=== PATIENT | male | born 1930 | race Caucasian/White ===

== ENCOUNTER 2016-10-09 21:07 | Inpatient (IN) | payer MEDICARE, MEDICAID ==
[~2016-10-09] VITALS: Ht 167.6 cm; Wt 78.0 kg
[~2016-10-09 21:07] MED LIST: AVODART0.5 MG PO; CRESTOR10 M1; EFFIENT5 MG PO; NORCO 10-325 T1 EACH PO; NORCO 5-325 TA1 EACH PO; TAMSULOSIN HCL0.4 MG PO; UNOBMED
[2016-10-09 21:48] LABS: BASOPHILS % (AUTO) 0.7 % (0.0-2.0); EOSINOPHILS % (AUTO) 0.7 % (0.0-3.0); LYMPHOCYTES % (AUTO) 11.2 % (20.0-45.0); MEAN CORPUSCULAR HEMOGLOBIN 33.1 PG (27.0-31.0); MEAN CORPUSCULAR HGB CONC 35.1 G/DL (32.0-36.0); MEAN CORPUSCULAR VOLUME 94 FL (80-99); MEAN PLATELET VOLUME 5.5 FL (6.5-10.1); MONOCYTES % (AUTO) 5.6 % (1.0-10.0); NEUTROPHILS % (AUTO) 81.8 % (45.0-75.0); PLATELET COUNT 465 K/UL (150-450); RED BLOOD COUNT 2.88 M/UL (4.70-6.10); RED CELL DISTRIBUTION WIDTH 13.7 % (11.6-14.8); WHITE BLOOD COUNT 13.2 K/UL (4.8-10.8)
[2016-10-09 22:07] LABS: TROPONIN I < 0.30 ng/mL (<=0.30)
[2016-10-09 22:11] LABS: ALANINE AMINOTRANSFERASE 180 U/L (3-41); ANION GAP 15 (5-15); ASPARTATE AMINO TRANSFERASE 68 U/L (5-40); CALCIUM 8.8 mg/dL (8.6-10.2); CARBON DIOXIDE 23 mEQ/L (20-30); CHLORIDE 96 mEQ/L (98-107); HEMOLYSIS 14; POTASSIUM 4.8 mEQ/L (3.4-4.9); SODIUM 134 mEQ/L (135-145); TOTAL PROTEIN 5.8 g/dL (6.6-8.7)
[2016-10-09 22:48] VITALS: BP 101/55
[2016-10-09 23:21] LABS: APPEARANCE,URINE CLEAR; KETONES,URINE NEGATIVE (NEGATIVE); LEUKOCYTE ESTERASE ,URINE NEGATIVE (NEGATIVE); NITRITE,URINE NEGATIVE (NEGATIVE); PH,URINE 5 (4.5-8.0); PROTEIN,URINE NEGATIVE (NEGATIVE); UROBILINOGEN,URINE 1 MG/DL (0.0-1.0)
[2016-10-09 23:29] LABS: RBC,URINE 0-2 /HPF (0 - 0); WBC,URINE 0-2 /HPF (0 - 0)
[2016-10-09 23:30] LABS: BACTERIA,URINE OCCASIONAL /HPF
[2016-10-10] VITALS (8 sets, daily range): BP systolic 97–125; BP diastolic 50–69
[2016-10-10] MEDS ORDERED: ASPIR 8181 MG ORAL (01:16)
[2016-10-10] MEDS ORDERED: ACETAMINOPHEN325 M1 ORAL (01:17)
--- NOTE | 2016-10-10 01:21 | Emergency Room Report ---
History of Present Illness General Chief Complaint: Chest Pain Source: Patient, Family Member, EMS Present Illness HPI Is an 86-year-old male with a history of CAD with previous stenting done at [facility]. He presents with chief complaint of chest pain. Onset about 2 hours prior to arrival. [place] short of breath. Pain is mid chest. No radiation. No nausea vomiting. Decreased appetite for one day. He is in a rehabilitation facility he states he had recent hip replacement surgery. Allergies: Coded Allergies: No Known Allergies (Unverified , 07/29/12) Patient History Past Medical History: see triage record, old chart reviewed, CAD Past Surgical History: other Pertinent Family History: none Social History: Denies: smoking Immunizations: other Reviewed Nursing Documentation: PMH: Agreed, PSxH: Agreed Review of Systems Eye: Denies: blurred vision, eye pain ENT: Denies: ear pain, nose congestion, throat swelling Respiratory: Denies: cough, shortness of breath Cardiovascular: Reports: chest pain, Denies: palpitations Gastrointestinal: Denies: abdominal pain, diarrhea, nausea, vomiting Musculoskeletal: Denies: back pain, joint pain Skin: Denies: rash Neurological: Denies: headache, numbness Endocrine: Denies: increased thirst, increased urine Hematologic/Lymphatic: Denies: easy bruising All Other Systems: negative except mentioned in HPI Physical Exam Vital Signs Date Time Temp Pulse Resp B/P Pulse Ox O2 Delivery O2 Flow Rate FiO2 10/09/16 21:08 97 15 109/60 99 Room Air 10/09/16 22:48 97.4 vitals unremarkable Sp02 EP Interpretation: reviewed, normal General Appearance: well appearing, no apparent distress, alert Head: normocephalic, atraumatic Eyes: bilateral eye EOMI, bilateral eye PERRL ENT: hearing grossly normal, normal pharynx Neck: full range of motion, supple, no meningismus Respiratory: chest non-tender, lungs clear, normal breath sounds Cardiovascular #1: regular rate, rhythm, no murmur Gastrointestinal: normal bowel sounds, non tender, no mass, no organomegaly, no bruit, non-distended Musculoskeletal: back normal Psychiatric: mood/affect normal Skin: warm/dry Medical Decision Making Diagnostic Impression: Primary Impression: ACS (acute coronary syndrome) Additional Impression: Anemia Qualified Codes: D64.9 - Anemia, unspecified ER Course Patient presents with chest pain. He does have known coronary artery disease with previous stenting. Chest pain atypical in for said her troponin negative. Load the admission for further workup. No evidence of pneumonia, PE, dissection on CT scan. Laboratory Tests Test 10/09/16 21:15 10/09/16 22:45 White Blood Count 13.2 K/UL (4.8-10.8) H Red Blood Count 2.88 M/UL (4.70-6.10) L Hemoglobin 9.5 G/DL (14.2-18.0) L Hematocrit 27.1 % (42.0-52.0) L Mean Corpuscular Volume 94 FL (80-99) Mean Corpuscular Hemoglobin 33.1 PG (27.0-31.0) H Mean Corpuscular Hemoglobin Concent 35.1 G/DL (32.0-36.0) Red Cell Distribution Width 13.7 % (11.6-14.8) Platelet Count 465 K/UL (150-450) H Mean Platelet Volume 5.5 FL (6.5-10.1) L Neutrophils (%) (Auto) 81.8 % (45.0-75.0) H Lymphocytes (%) (Auto) 11.2 % (20.0-45.0) L Monocytes (%) (Auto) 5.6 % (1.0-10.0) Eosinophils (%) (Auto) 0.7 % (0.0-3.0) Basophils (%) (Auto) 0.7 % (0.0-2.0) D-Dimer 8769 ng/mL (<500) H Sodium Level 134 mEQ/L (135-145) L Potassium Level 4.8 mEQ/L (3.4-4.9) Chloride Level 96 mEQ/L (98-107) L Carbon Dioxide Level 23 mEQ/L (20-30) Anion Gap 15 (5-15) Blood Urea Nitrogen 31 mg/dL (7-23) H Creatinine 1.0 mg/dL (0.7-1.2) Estimat Glomerular Filtration Rate mL/min (>60) Glucose Level 172 mg/dL (74-106) H Calcium Level 8.8 mg/dL (8.6-10.2) Total Bilirubin 0.5 mg/dL (0.0-1.2) Aspartate Amino Transf (AST/SGOT) 68 U/L (5-40) H Alanine Aminotransferase (ALT/SGPT) 180 U/L (3-41) H Alkaline Phosphatase 97 U/L (40-129) Total Creatine Kinase 50 U/L (38-174) Creatine Kinase MB 4.0 ng/mL (< 6.7) Creatine Kinase MB Relative Index 8.0 Troponin I < 0.30 ng/mL (<=0.30) Pro-B-Type Natriuretic Peptide 384 pg/mL (0-450) Total Protein 5.8 g/dL (6.6-8.7) L Albumin 2.9 g/dL (3.5-5.2) L Globulin 2.9 g/dL Albumin/Globulin Ratio 1.0 (1.0-2.7) Urine Color Yellow Urine Appearance Clear Urine pH 5 (4.5-8.0) Urine Specific [place] 1.015 (1.005-1.035) Urine Protein Negative (NEGATIVE) Urine Glucose (UA) Negative (NEGATIVE) Urine Ketones Negative (NEGATIVE) Urine Occult Blood 1+ (NEGATIVE) H Urine Nitrite Negative (NEGATIVE) Urine Bilirubin Negative (NEGATIVE) Urine Urobilinogen 1 MG/DL (0.0-1.0) H Urine Leukocyte Esterase Negative (NEGATIVE) Urine RBC 0-2 /HPF (0 - 0) H Urine WBC 0-2 /HPF (0 - 0) Urine Squamous Epithelial Cells None /LPF (NONE/OCC) Urine Bacteria Occasional /HPF (NONE) Lab Results Impression labs with anemia EKG Diagnostic Results Rate: normal Rhythm: NSR ST Segments: no acute changes Rhythm Strip Diag. Results EP Interpretation: yes Rate: 80 Rhythm: NSR, no PVC's, no ectopy Chest X-Ray Diagnostic Results EP Interpretation: Yes Findings: no consolidation, no effusion, no pneumothorax, no acute cardiopulmonary disease Number of Views: 1 CT/MRI/US Diagnostic Results CT/MRI/US Diagnostic Results : Imaging Test Ordered: CT chest Impression Read by radiologist. No acute PE. Emphysema. Last Vital Signs Date Time Temp Pulse Resp B/P Pulse Ox O2 Delivery O2 Flow Rate FiO2 10/10/16 00:55 70 12 109/56 98 Room Air 10/09/16 22:48 97.4 Status: improved Disposition: ADMITTED INPATIENT Condition: Serious Referrals: Stanley Baca MD (PCP) ZHANG PINEDA M.D. Oct 10, 2016 01:21
[2016-10-10] MEDS ORDERED: DuoNeb 0.5-3(2.5)mg/3ml neb HHN PRN (06:45)
[2016-10-10] MEDS ORDERED: Morphine Sulfate 2mg/ml Inj IVP PRN (06:45)
[2016-10-10] MEDS ORDERED: Diltiazem 25mg/5ml IV PRN (06:45)
[2016-10-10] MEDS ORDERED: Ketorolac 30mg Inj IV PRN (06:45)
[2016-10-10] MEDS ORDERED: Enalaprilat 2.5mg/2ml Inj IV PRN (06:45)
[2016-10-10] MEDS ORDERED: Miralax 17gm pkt ORAL PRN (06:45)
[2016-10-10] MEDS ORDERED: Nitroglycerin Subl 0.4mg tab (Bottle Of 25) SL PRN (06:45)
[2016-10-10] MEDS ORDERED: Norco 5mg/325mg tab ORAL PRN (07:00)
[2016-10-10 08:34] LABS: TROPONIN I < 0.30 ng/mL (<=0.30)
[2016-10-10] MEDS: Tamsulosin 0.4mg cap ORAL SCH (08:44)
[2016-10-10] MEDS: Aspirin Baby 81mg ORAL SCH (08:44)
[2016-10-10] MEDS: Heparin 5000 units/ml inj SUBQ SCH ×2 (08:48→13:37)
[2016-10-10] MEDS ORDERED: Heparin 5000 units/ml inj SUBQ SCH (09:00)
--- NOTE | 2016-10-10 10:02 | Diagnostic Imaging Report ---
ndication: Chest pain Technique: IV administration nonionic contrast. Spiral acquisitions obtained from the lung bases to the lung apices. Multiplanar and 3-D reconstructions were generated. Total dose length product 674 mGycm. CTDIvol(s) 12, 75, 18 mGy. Dose reduction achieved using automated exposure control Comparison: None Reference is made to abdomen pelvis CT dated 05/12/2010 Findings: There is poor quality opacification of the pulmonary arteries, precluding exclusion of all of the large central pulmonary emboli. The thoracic aorta is well opacified, and there is no evidence of aneurysm or dissection. There is common origin of the right brachiocephalic and left common carotid arteries. No pulmonary arterial dilatation. There is mild dilatation of the right atrium and right ventricle. There is a small 5 mm nodule seen in the inferior right upper lobe anterolaterally, seen on image 47 of series 7. A 4 mm nodule is seen just inferior to this on image 50 of series 7. A 3 mm right lower lobe nodule is demonstrated on image 58 of series. A 3 mm nodule is seen in the left lower lobe, image 49 series. A 6 mm nodule is seen in the anterior left lower lobe, image 63 of series 7. This demonstrates a small peripheral calcification. Multiple subpleural nodules are seen the lung bases, as well as a few in the right upper lobe. These are all visible on the previous exam There is a small left pleural effusion, resulting in some compressive left lower lobe atelectasis.. There is bilateral basilar dependent atelectasis. No infiltrates or congestion. A single cystic space is seen in the right lower lobe There is a large paraesophageal hiatal hernia. No pericardial effusion. No mediastinal or adenopathy. The thyroid is massively enlarged and demonstrates multiple nodules. No axillary or chest wall mass or adenopathy. The included upper abdominal anatomy demonstrates calcifications within segment 7 of the liver. Impression: Poor opacification of the pulmonary arteries, essentially nondiagnostic for exclusion of pulmonary embolus Isolated right atrial and right ventricular dilatation, significance uncertain. Pulmonary arterial hypertension not excludable Multiple pulmonary nodules bilaterally. Most of these are evident on the previous CT abdomen 05/12/2010, appear unchanged, and are presumed postinflammatory. A few of the subpleural nodules in the upper lobes are excluded from the prior imaging volume but are probably post inflammatory as well Single right lower lobe cystic space noted. Massively enlarged multinodular thyroid Large paraesophageal hiatal hernia Right hepatic lobe calcifications, presumed dystrophic, unchanged since 2009 This agrees with the preliminary interpretation provided overnight by [facility] teleradiology service. The CT scanner at [facility] is accredited by the [employer] and the scans are performed using protocols designed to limit radiation exposure to as low as reasonably achievable to attain images of sufficient resolution adequate for diagnostic evaluation.
--- NOTE | 2016-10-10 12:00 | Diagnostic Imaging Report ---
Indication: Chest pain Technique: One view of the chest Comparison: none Findings: Widened upper mediastinum is consistent with substernal goiter demonstrated on recent CT. There is some atelectasis at the left lung base. The lungs and pleural spaces are otherwise clear. Lower mediastinal mass is consistent with the hiatal hernia demonstrated on recent CT. Impression: Minimal left basilar atelectasis. No acute process otherwise Widened upper mediastinum, consistent with known substernal goiter Hiatal hernia
--- NOTE | 2016-10-10 12:04 | Consultation ---
History of Present Illness General Date patient seen: Oct 10, 2016 Chief Complaint: Chest Pain Referring physician: Dr. Fuentes Reason for Consultation: inpatient managemetn Present Illness HPI 86-year-old male with a history of CAD, stenting, currently residing in a rehab presented with chief complaint of chest pain with onset about 2 hours prior to arrival. No radiation. No nausea vomiting. He is admitted to telemetry to rule out acute CO. Allergies: Coded Allergies: No Known Allergies (Unverified , 07/29/12) Medication History Scheduled Aspirin* (Aspir 81*), 81 MG ORAL DAILY, (Reported) Scheduled PRN Acetaminophen* (Acetaminophen 325MG Tablet*), 325 MG ORAL Q4H PRN for For Pain, (Reported) Miscellaneous Medications Dutasteride (Avodart), PO, (Reported) Prasugrel Hcl (Effient), PO, (Reported) Rosuvastatin Calcium (Crestor), (Reported) Tamsulosin Hcl (Tamsulosin Hcl*), PO, (Reported) Unable to Obtain Medications (Unable To Obtain Meds), (Reported) Discontinued Medications Hydrocodone Bit/Acetaminophen 10-325* ([place] 10-325*), 1 TAB PO Q6H Discontinued Reason: Therapy completed Hydrocodone Bit/Acetaminophen 5-325* ([place] 5-325*), 1 TAB PO Q6H Discontinued Reason: Therapy completed Patient History Healthcare decision maker pt alert and oriented x2 Resuscitation status Full Code Advanced Directive on File No Past Medical/Surgical History Past Medical/Surgical History: (1) HTN (hypertension) (2) Prostate cancer (3) Status post hip surgery Review of Systems All Other Systems: negative except mentioned in HPI Physical Exam General Appearance: cachetic Lines, tubes and drains: peripheral HEENT: normocephalic, atraumatic Neck: non-tender, normal alignment Respiratory/Chest: chest wall non-tender, lungs clear Cardiovascular/Chest: normal peripheral pulses, normal rate Abdomen: normal bowel sounds, non tender Genitourinary/Rectal: normal genital exam, normal rectal exam Extremities: normal range of motion Last 24 Hour Vital Signs Date Time Temp Pulse Resp B/P Pulse Ox O2 Delivery O2 Flow Rate FiO2 10/10/16 10:02 109/67 10/10/16 08:43 97.7 80 20 101/53 99 Nasal Cannula 3.0 10/10/16 07:46 81 10/10/16 04:30 97.0 69 20 124/65 100 Room Air 10/10/16 04:00 71 10/10/16 02:10 97.7 72 16 125/69 98 Nasal Cannula 2.0 10/10/16 01:55 97.4 70 12 109/56 98 Room Air 10/10/16 00:55 70 12 109/56 98 Room Air 10/09/16 22:48 97.4 80 16 101/55 97 Room Air 10/09/16 21:10 97 15 Room Air 10/09/16 21:08 97 15 109/60 99 Room Air Intake and Output 10/09/16 10/10/16 19:00 07:00 # Voids 2 Laboratory Tests Test 10/09/16 21:15 10/09/16 22:45 10/10/16 07:45 White Blood Count 13.2 K/UL (4.8-10.8) H Red Blood Count 2.88 M/UL (4.70-6.10) L Hemoglobin 9.5 G/DL (14.2-18.0) L Hematocrit 27.1 % (42.0-52.0) L Mean Corpuscular Volume 94 FL (80-99) Mean Corpuscular Hemoglobin 33.1 PG (27.0-31.0) H Mean Corpuscular Hemoglobin Concent 35.1 G/DL (32.0-36.0) Red Cell Distribution Width 13.7 % (11.6-14.8) Platelet Count 465 K/UL (150-450) H Mean Platelet Volume 5.5 FL (6.5-10.1) L Neutrophils (%) (Auto) 81.8 % (45.0-75.0) H Lymphocytes (%) (Auto) 11.2 % (20.0-45.0) L Monocytes (%) (Auto) 5.6 % (1.0-10.0) Eosinophils (%) (Auto) 0.7 % (0.0-3.0) Basophils (%) (Auto) 0.7 % (0.0-2.0) D-Dimer 8769 ng/mL (<500) H Sodium Level 134 mEQ/L (135-145) L Potassium Level 4.8 mEQ/L (3.4-4.9) Chloride Level 96 mEQ/L (98-107) L Carbon Dioxide Level 23 mEQ/L (20-30) Anion Gap 15 (5-15) Blood Urea Nitrogen 31 mg/dL (7-23) H Creatinine 1.0 mg/dL (0.7-1.2) Estimat Glomerular Filtration Rate mL/min (>60) Glucose Level 172 mg/dL (74-106) H Calcium Level 8.8 mg/dL (8.6-10.2) Total Bilirubin 0.5 mg/dL (0.0-1.2) Aspartate Amino Transf (AST/SGOT) 68 U/L (5-40) H Alanine Aminotransferase (ALT/SGPT) 180 U/L (3-41) H Alkaline Phosphatase 97 U/L (40-129) Total Creatine Kinase 50 U/L (38-174) Creatine Kinase MB 4.0 ng/mL (< 6.7) Creatine Kinase MB Relative Index 8.0 Troponin I < 0.30 ng/mL (<=0.30) < 0.30 ng/mL (<=0.30) Pro-B-Type Natriuretic Peptide 384 pg/mL (0-450) Total Protein 5.8 g/dL (6.6-8.7) L Albumin 2.9 g/dL (3.5-5.2) L Globulin 2.9 g/dL Albumin/Globulin Ratio 1.0 (1.0-2.7) Urine Color Yellow Urine Appearance Clear Urine pH 5 (4.5-8.0) Urine Specific [place] 1.015 (1.005-1.035) Urine Protein Negative (NEGATIVE) Urine Glucose (UA) Negative (NEGATIVE) Urine Ketones Negative (NEGATIVE) Urine Occult Blood 1+ (NEGATIVE) H Urine Nitrite Negative (NEGATIVE) Urine Bilirubin Negative (NEGATIVE) Urine Urobilinogen 1 MG/DL (0.0-1.0) H Urine Leukocyte Esterase Negative (NEGATIVE) Urine RBC 0-2 /HPF (0 - 0) H Urine WBC 0-2 /HPF (0 - 0) Urine Squamous Epithelial Cells None /LPF (NONE/OCC) Urine Bacteria Occasional /HPF (NONE) Height (Feet): 5 Height (Inches): 6.00 Weight (Pounds): 172 Medications Current Medications Medications (Trade) Dose Ordered Sig/Ralph Route PRN Reason Start Time Stop Time Status Last Admin Dose Admin Acetaminophen (Tylenol) 650 mg Q4H PRN ORAL FEVER 10/10/16 06:45 11/09/16 06:44 Acetaminophen/ Hydrocodone Bitart ([place] 5/325) 1 tab Q4H PRN ORAL Moderate Pain (Pain Scale 4-6) 10/10/16 07:00 10/17/16 06:59 Albuterol/ Ipratropium (DuoNeb 0.5-3(2.5)mg/3ml) 3 ml Q4H PRN HHN Shortness of Breath 10/10/16 06:45 10/15/16 06:44 Aspirin (ASA) 162 mg DAILY ORAL 10/10/16 09:00 11/09/16 08:59 10/10/16 08:44 Atorvastatin Calcium (Lipitor) 40 mg BEDTIME ORAL 10/10/16 21:00 11/09/16 20:59 Clopidogrel Bisulfate (Plavix) 75 mg DAILY ORAL 10/10/16 09:00 11/09/16 08:59 10/10/16 08:44 Diltiazem HCl (Cardizem) 10 mg Q1H PRN IV heart rate more than 120, 10/10/16 06:45 11/09/16 06:44 Enalaprilat (Vasotec) 2.5 mg Q6H PRN IV sbp more than 160 10/10/16 06:45 11/09/16 06:44 Finasteride (Proscar) 5 mg DAILY ORAL 10/10/16 09:00 11/09/16 08:59 10/10/16 08:44 Heparin Sodium (Porcine) (Heparin 5000 units/ml) 5,000 units EVERY 8 HOURS SUBQ 10/10/16 09:00 11/09/16 08:59 10/10/16 08:48 Ketorolac Tromethamine (Toradol 30mg) 30 mg Q6HR PRN IV moderate pain ( 4-6) 10/10/16 06:45 10/15/16 06:44 Morphine Sulfate (Morphine Sulfate) 2 mg Q4H PRN IVP severe Pain (Pain Scale 7-10) 10/10/16 06:45 10/17/16 06:44 Nitroglycerin (Ntg) 0.4 mg Q5M PRN SL Prn Chest Pain 10/10/16 06:45 11/09/16 06:44 Ondansetron HCl (Zofran) 4 mg Q6H PRN IVP Nausea & Vomiting 10/10/16 06:45 11/09/16 06:44 Pantoprazole (Protonix) 40 mg ACBREAKFAST ORAL 10/10/16 06:30 11/09/16 06:29 10/10/16 07:21 Polyethylene Glycol (Miralax) 17 gm DAILYPRN PRN ORAL Constipation 10/10/16 06:45 11/09/16 06:44 Tamsulosin HCl (Flomax) 0.4 mg DAILY ORAL 10/10/16 09:00 11/09/16 08:59 10/10/16 08:44 Temazepam (Restoril) 15 mg HSPRN PRN ORAL Insomnia 10/10/16 06:45 10/17/16 06:44 Assessment/Plan Problem List: (1) ACS (acute coronary syndrome) ICD Codes: I24.9 - Acute ischemic heart disease, unspecified SNOMED: 727727562 (2) HTN (hypertension) ICD Codes: I10 - Essential (primary) hypertension SNOMED: 35844681 (3) Anemia ICD Codes: D64.9 - Anemia, unspecified SNOMED: 515311617 Qualifiers: Qualified Codes: D64.9 - Anemia, unspecified (4) Prostate cancer ICD Codes: C61 - Malignant neoplasm of prostate SNOMED: 260552118 Assessment/Plan serial ekg, troponin echo anemia w/u stress study dvt prophylaxis check psa VINOD ANDERSON Oct 10, 2016 12:04
--- NOTE | 2016-10-10 14:14 | History & Physical ---
History and Physical History & Physicial Dictated for Int Med-Dr Baca no. [id number]. CLARENCE MOREAU Oct 10, 2016 14:14
[2016-10-10] MEDS ORDERED: XARELTO10 MG ORAL (16:21)
--- NOTE | 2016-10-10 16:45 | Diagnostic Imaging Report ---
Indication: Chest pain Technique: No stress imaging, per patient request. Resting images obtained using IV administration 10.3 mCi 99m technetium Myoview. SPECT images obtained Comparison: None Findings: No cardiology report is available. Normal rest perfusion is demonstrated. Normal cardiac chamber size Impression: Normal resting perfusion, indicating absence of any significant infarcts. Unable to assess for ischemia in the absence of stress images
--- NOTE | 2016-10-10 18:18 | Cardiology Progress Note ---
Assessment/Plan Assessment/Plan [id number] full not dictated ivf bolus repeat ekg and trop hold dc pt agreeable Objective Last 24 Hour Vital Signs Date Time Temp Pulse Resp B/P Pulse Ox O2 Delivery O2 Flow Rate FiO2 10/10/16 16:09 97.5 89 18 97/50 97 Room Air 10/10/16 15:46 92 10/10/16 12:02 97.0 73 20 108/58 98 Room Air 10/10/16 11:30 84 10/10/16 10:02 109/67 10/10/16 08:43 97.7 80 20 101/53 99 Nasal Cannula 3.0 10/10/16 07:46 81 10/10/16 06:40 69 20 Room Air 21 10/10/16 04:30 97.0 69 20 124/65 100 Room Air 10/10/16 04:00 71 10/10/16 02:10 97.7 72 16 125/69 98 Nasal Cannula 2.0 10/10/16 01:55 97.4 70 12 109/56 98 Room Air 10/10/16 00:55 70 12 109/56 98 Room Air 10/09/16 22:48 97.4 80 16 101/55 97 Room Air 10/09/16 21:10 97 15 Room Air 10/09/16 21:08 97 15 109/60 99 Room Air Intake and Output 10/09/16 10/10/16 19:00 07:00 # Voids 2 Laboratory Tests Test 10/09/16 21:15 10/09/16 22:45 10/10/16 07:45 White Blood Count 13.2 K/UL (4.8-10.8) H Red Blood Count 2.88 M/UL (4.70-6.10) L Hemoglobin 9.5 G/DL (14.2-18.0) L Hematocrit 27.1 % (42.0-52.0) L Mean Corpuscular Volume 94 FL (80-99) Mean Corpuscular Hemoglobin 33.1 PG (27.0-31.0) H Mean Corpuscular Hemoglobin Concent 35.1 G/DL (32.0-36.0) Red Cell Distribution Width 13.7 % (11.6-14.8) Platelet Count 465 K/UL (150-450) H Mean Platelet Volume 5.5 FL (6.5-10.1) L Neutrophils (%) (Auto) 81.8 % (45.0-75.0) H Lymphocytes (%) (Auto) 11.2 % (20.0-45.0) L Monocytes (%) (Auto) 5.6 % (1.0-10.0) Eosinophils (%) (Auto) 0.7 % (0.0-3.0) Basophils (%) (Auto) 0.7 % (0.0-2.0) D-Dimer 8769 ng/mL (<500) H Sodium Level 134 mEQ/L (135-145) L Potassium Level 4.8 mEQ/L (3.4-4.9) Chloride Level 96 mEQ/L (98-107) L Carbon Dioxide Level 23 mEQ/L (20-30) Anion Gap 15 (5-15) Blood Urea Nitrogen 31 mg/dL (7-23) H Creatinine 1.0 mg/dL (0.7-1.2) Estimat Glomerular Filtration Rate mL/min (>60) Glucose Level 172 mg/dL (74-106) H Calcium Level 8.8 mg/dL (8.6-10.2) Total Bilirubin 0.5 mg/dL (0.0-1.2) Aspartate Amino Transf (AST/SGOT) 68 U/L (5-40) H Alanine Aminotransferase (ALT/SGPT) 180 U/L (3-41) H Alkaline Phosphatase 97 U/L (40-129) Total Creatine Kinase 50 U/L (38-174) Creatine Kinase MB 4.0 ng/mL (< 6.7) Creatine Kinase MB Relative Index 8.0 Troponin I < 0.30 ng/mL (<=0.30) < 0.30 ng/mL (<=0.30) Pro-B-Type Natriuretic Peptide 384 pg/mL (0-450) Total Protein 5.8 g/dL (6.6-8.7) L Albumin 2.9 g/dL (3.5-5.2) L Globulin 2.9 g/dL Albumin/Globulin Ratio 1.0 (1.0-2.7) Urine Color Yellow Urine Appearance Clear Urine pH 5 (4.5-8.0) Urine Specific [place] 1.015 (1.005-1.035) Urine Protein Negative (NEGATIVE) Urine Glucose (UA) Negative (NEGATIVE) Urine Ketones Negative (NEGATIVE) Urine Occult Blood 1+ (NEGATIVE) H Urine Nitrite Negative (NEGATIVE) Urine Bilirubin Negative (NEGATIVE) Urine Urobilinogen 1 MG/DL (0.0-1.0) H Urine Leukocyte Esterase Negative (NEGATIVE) Urine RBC 0-2 /HPF (0 - 0) H Urine WBC 0-2 /HPF (0 - 0) Urine Squamous Epithelial Cells None /LPF (NONE/OCC) Urine Bacteria Occasional /HPF (NONE) Free Prostate Specific Antigen Pending Percent Free Prostate Specific Ag Pending Prostate Specific Antigen Total Pending INGRID FRANZ Oct 10, 2016 18:18
[2016-10-10] MEDS ORDERED: NS 250 ML IVPB ONE (18:30)
--- NOTE | 2016-10-10 20:48 | History and Physical Report ---
DATE OF ADMISSION: 10/10/[address] Baca. CHIEF COMPLAINT: The patient is an 86-year-old Farsi-speaking white male, presents with complaint of chest pain. HISTORY OF PRESENT ILLNESS: The patient underwent right hip hemiarthroplasty secondary to right femoral neck fracture at [facility] on 09/29/2016. The patient was admitted to [facility] from 09/29/2016 to 10/04/2016. The patient was discharged to rehabilitation center at [place]. The patient began to experience chest pain approximately 2 hours prior to arrival at [facility]. Chest pain is substernal. There is no radiation to the jaw or to the shoulder. The patient also felt short of breath. The patient presented to [facility]. The patient was admitted for chest pain to rule out acute coronary syndrome. REVIEW OF SYSTEMS: Constitutional: The patient denies weight loss or weight gain. The patient denies fevers or chills. HEENT: The patient denies ear or throat pain. Cardiovascular: The patient has palpitations. The patient complains of chest pain. Chest: The patient denies wheezing or shortness of breath. Abdomen: The patient denies nausea or vomiting. He complains of constipation. Genitourinary: The patient denies dysuria or increased frequency of urination. Neuromuscular: The patient denies seizures or generalized weakness. PAST MEDICAL HISTORY: Significant for, 1. Coronary disease, status post PTCA with stent placement. 2. Hypertension. 3. Right femoral neck fracture as above. 4. History of prostate cancer, status post radiation therapy. 5. Hypercholesterolemia. PAST SURGICAL HISTORY: Significant for, 1. Right femur hemiarthroplasty secondary to fracture as above. 2. Partial thyroidectomy. CURRENT MEDICATIONS: 1. Crestor 20 mg one tablet p.o. nightly. 2. Avodart 0.5 mg one tablet p.o. daily. 3. Benicar 20 mg one tablet p.o. daily. ALLERGIES: No known drug allergies. SOCIAL HISTORY: The patient is . The patient denies tobacco or alcohol use. PHYSICAL EXAMINATION: VITAL SIGNS: Temperature 97.7, respirations 20, pulse 80, and blood pressure 101/53. GENERAL: The patient is a well-developed, well-nourished, elderly white male, in no apparent distress. HEENT: Eyes, pupils are equal and responsive to light and accommodation. Extraocular movements are intact. NECK: Supple. No lymphadenopathy. CHEST: Lungs are clear to auscultation bilaterally without wheezes or rales. CARDIOVASCULAR: Regular rate. S1 and S2 normal without murmurs, rubs, or gallops. ABDOMEN: Soft, nontender, and nondistended. Positive bowel sounds. No evidence of hepatosplenomegaly. Currently, no rebound or guarding. EXTREMITIES: Negative for clubbing, cyanosis, or edema. RECTAL/GENITALIA: Refused. NEUROLOGIC: Cranial nerves II through XII grossly intact without focal deficits. Motor strength is 5/5 bilaterally. Deep tendon reflexes are 2+ plantar. LABORATORY STUDIES: WBC 13.2, hemoglobin 9.5, hematocrit 27.1, and platelets 465,000. Sodium 134, potassium 4.8, chloride 96, CO2 23, BUN 31, creatinine 1.0, and glucose 172. Troponin less than 0.3. ASSESSMENT: This is an 86-year-old white male with, 1. Chest pain. 2. History of coronary artery disease. 3. History of right femoral neck fracture. 4. Hypertension. 5. Prostate cancer. 6. Hypercholesterolemia. 7. Sacral decubitus ulcer, stage I. TREATMENT: 1. CHEST PAIN/CORONARY ARTERY DISEASE: Cardiology consultation is pending with Dr. Jimenes and adenosine Cardiolite stress test is pending. We will follow recommendation of Cardiology. The patient does have a history of coronary artery disease, status post stent placement. 2. Hypertension. Continue Benicar as above. 3. History of prostate cancer. Continue Avodart as above. 4. Hypercholesterolemia. Continue Crestor as above. 5. Sacral decubitus ulcer, stage I. Agustin Fuentes M.D. DR: GAB JOB#: [id number] CC:
[2016-10-11 00:28] VITALS: BP 109/62
[2016-10-11 04:03] VITALS: BP 111/60
--- NOTE | 2016-10-11 04:58 | Consultation ---
DATE OF CONSULTATION: 10/10/2016 CARDIOLOGY CONSULTATION CONSULTING PHYSICIAN: Soham Jimenes M.D. REFERRING PHYSICIAN: Meek Yanes M.D. REASON FOR REFERRAL: Hypotension. HISTORY OF PRESENT ILLNESS: This is an elderly gentleman, who apparently has been recently hospitalized at [facility] for a non-syncopal fall resulting in a hip fracture, for which he underwent a hip surgery. He was subsequently transferred to convalescent facility since he was not feeling really good and has not been eating well for the past couple of days. He had some physical therapy yesterday did not feel good and apparently he had problems with the way he was looking and that he has been transferred to the emergency room at [facility]. He has had some discomfort in his chest, across the chest, but nothing like what he has had on prior occasions when he had his coronary intervention by number of years ago. Clearly, there is a distinction between the sensation he had in his chest, which he states resolved after a short period of time versus with his pre-angioplasty symptom. He does not have any PND and feels better when he is lying down flat. He does not have any palpitations, has not felt any dizziness or lightheadedness on standing position at all. Today, he apparently was scheduled to undergo a perfusion imaging of some sort. He did not feel good and they aborted the test and he is now wanting to go back to the facility, but the nursing staff found him to be hypotensive and therefore eventually this consultation was requested. Again, the patient does not have any chest discomfort whatsoever at the present time. PAST MEDICAL HISTORY: Positive for history of prostate cancer for which he underwent radiation therapy two to three years ago. He has history of coronary disease, status post percutaneous coronary intervention. The vessel was really unknown to me ____ I have not been able to get any information from [facility] except what is listed in the chart. He has history of hyperlipidemia, history of prior partial thyroidectomy. No prior history of heart attack. No stroke. No hepatitis or tuberculosis. No asthma or emphysema. No ulcers. No kidney problems, liver problems, thyroid problems, anemia, or arthritis is known by the patient. Actually, he has had an LAD stent as it appears in the chart. The patient had a cardiac catheterization in 2004 that showed proximal stenosis of left anterior descending artery. He had moderate disease of left circumflex artery and right coronary artery at that time. ALLERGIES: He is reportedly not allergic to any medications. SOCIAL HISTORY: He never smoked and never drank alcoholic beverages. No drug use. He lives at home. REVIEW OF SYSTEMS: Gastrointestinal: He denies any nausea, vomiting, diarrhea, or constipation. No bloody stools or black tarry stools. No burning on urination. No bloody urine. Constitutional: No fevers or chills. No weight loss. PHYSICAL EXAMINATION: GENERAL: Shows to be elderly gentleman, in no apparent respiratory distress. VITAL SIGNS: Blood pressure has been as low as 84/46 and subsequently 97/50s, has been as high as 125/69 earlier today. NECK: Supple. No jugular venous distention. No abdominojugular reflux noted. LUNGS: Clear to auscultation and percussion. CARDIAC: S1 is normal. S2 is normal. Regular rate and rhythm. No heaves. No thrills. No gallops or rubs are noted. He does have actually holosystolic regurgitant murmur. ABDOMEN: Soft and nontender. Positive bowel sounds. EXTREMITIES: There is no clubbing, cyanosis, nor is there any edema. NEUROLOGIC: He is awake, alert, and responsive, in no apparent respiratory distress. LABORATORY AND DIAGNOSTIC DATA: His white count is 13.2, hemoglobin 9.5, and platelet count 465,000. His sodium is 134, potassium 4.8, chloride 98, bicarbonate 23, BUN 31, creatinine 1.1, and glucose 172. Two sets of cardiac enzymes are negative. ProBNP of 384. Alkaline phosphatase is 97. Total CK of 50. AST and ALT are 68 and 170. Albumin of 2.9. D-dimer is 8769. Urinalysis is fairly unremarkable. His chest x-ray, no atelectasis. No acute process. He has widened up mediastinum consistent with known substernal goiter and hiatal hernia. CTA is reported as showing poor opacification of pulmonary artery, essentially nondiagnostic for exclusion of pulmonary embolism. Actually, the right atrial and right ventricular enlargement and pulmonary arterial hypertension is not excludable. Multiple pulmonary nodules bilaterally, previous CAT scan in 2009 appear unchanged. Massively enlarged multinodular thyroid, large paraesophageal hiatal hernia, right hepatic lobe calcification, and the patient had an attempt at SPECT imaging indicated normal resting perfusion. Ischemia was not assessed as the patient was not able to complete the test. Echocardiogram, technically difficult study, ejection fraction of 55% and mild diastolic relaxation abnormality. Pulmonary systolic pressure in the 50s. His electrocardiogram is fairly unremarkable. ASSESSMENT AND PLAN: 1. Hypotension, possibly volume related, although the patient does not have any significant elevated blood pressure. 2. Paraesophageal hernia. 3. History of recent hip fracture, status post surgery. 4. Coronary artery disease with stenting to left anterior descending artery and moderate disease in the right coronary artery territory in 2004. 5. History of prostate cancer, status post radiation therapy. 6. Hyperlipidemia. 7. Partial thyroidectomy. 8. Postoperative anemia. Dr. Yanes, this patient was seen in cardiac consultation. I do not feel it is safe for the patient to be going back to convalescent facility. I have asked him to allow us to administer some fluids to improve his blood pressure before he has to leave the hospital and go back to the convalescent facility agree. An EKG will be performed. His labs will be repeated. His CBC will be specifically repeated. IV fluids will be administered overnight to see if there is any improvement. The patient's electrocardiogram so far has not been negative. His EKG appears to be intact. His resting perfusion imaging was intact. His echo does show some pulmonary hypertension. A CT pulmonary angiogram was not diagnostic. I would perform a venous duplex of the lower extremity; however, of note is that the patient is on Xarelto as outpatient. I would discontinue Plavix and aspirin and Xarelto combination and then just leave him on probably a combination of low-dose Xarelto for DVT prophylaxis as well as aspirin and low-dose Xarelto as they are doing for DVT prophylaxis. Repeat cardiac enzymes of course should be done. Further recommendations depending on the findings of repeat EKG and cardiac enzymes and whether the patient has repeat chest . Soham Jimenes M.D. DR: Elliott JOB#: [id number] CC:
[2016-10-11 08:00] VITALS: BP 116/57
[2016-10-11] MEDS ORDERED: Xarelto 10mg tab ORAL SCH (09:00)
[2016-10-11] MEDS: Aspirin Baby 81mg ORAL SCH (09:41)
[2016-10-11] MEDS: Tamsulosin 0.4mg cap ORAL SCH (09:41)
[2016-10-11] MEDS ORDERED: DOBUTamine 250mg/250ml Premix IV ONE (09:53)
[2016-10-11] MEDS ORDERED: NS 275ml ONE (09:56)
[2016-10-11 11:21] VITALS: BP 109/57
--- NOTE | 2016-10-11 12:19 | Cardiology Report ---
APPROVED REPORT EXAM: Two-dimensional and M-mode echocardiogram with Doppler and color Doppler. INDICATION Left Ventricular Function M-Mode DIMENSIONS IVSd0.9 (0.7-1.1cm)Left Atrium (MM)3.2 (1.6-4.0cm) LVDd4.3 (3.5-5.6cm)Aortic Root3.1 (2.0-3.7cm) PWd0.8 (0.7-1.1cm)Aortic Cusp Exc.2.4 (1.5-2.0cm) IVSs1.6 cm LVDs2.6 (2.5-4.0cm) PWs0.8 cm Technically difficult study due to poor acoustic windows. Study quality precludes accurate assessment of regional wall motion. Normal left ventricular chamber size, systolic function and wall motion. Left ventricular ejection fraction estimated to be 55 %. No evidence of ventricular hypertrophy. No evidence of pericardial fat or effusion. Left atrium is at upper normal limit. Moderate right atrial enlargement. Right ventrical chamber size is within normal limits. Mild focal aortic valve sclerosis with adequate cusp excursion. Mildly thickened mitral valve leaflets with normal excursion. Mild mitral annulus and aortic root calcification. Pulmonic valve not well visualized. Normal tricuspid valve structure. IVC at normal size with minimal physiologic collapse. A color flow and spectral Doppler study was performed and revealed: Trace aortic regurgitation. Trace mitral regurgitation. Mitral diastolic velocities suggest reduced left ventricular relaxation (Grade I). Mild tricuspid regurgitation. Tricuspid systolic velocities suggests peak right ventricular systolic pressure of 50 mmHg, consistent with moderate pulmonary hypertension. No pulmonic regurgitation present.
--- NOTE | 2016-10-11 13:23 | Cardiology Report ---
APPROVED REPORT EKG Measurement Heart [id number] IL 262P64 [id number] Sinus rhythm with 1st degree AV block Otherwise normal ECG
--- NOTE | 2016-10-11 14:19 | Discharge Summary ---
Discharge Summary Hospital Course Date of Admission Oct 10, 2016 at 01:00 Date of Discharge Admitting Diagnosis Acute coronary syndrome HPI Pasha Penny is a 86 year old male who was admitted on Oct 10, 2016 at 01: 00 for Acute Coronary Syndrome Hospital Course Last 24 Hour Vital Signs Date Time Temp Pulse Resp B/P Pulse Ox O2 Delivery O2 Flow Rate FiO2 10/11/16 11:21 97.2 85 20 109/57 99 Nasal Cannula 1.0 10/11/16 08:30 80 10/11/16 08:00 97.5 67 20 116/57 100 Nasal Cannula 1.5 10/11/16 04:03 98.3 60 19 111/60 92 Room Air 10/11/16 04:00 67 10/11/16 00:28 98.3 61 19 109/62 98 Room Air 10/11/16 00:00 68 10/10/16 20:16 98.4 59 20 105/58 96 Room Air 10/10/16 20:13 88 18 Room Air 21 10/10/16 20:00 75 10/10/16 16:09 97.5 89 18 97/50 97 Room Air 10/10/16 15:46 92 General: No acute distress, awake and alert HEENT: NCAT, sclera anicteric, PERRL, EOMI. Neck: Supple, no significant jugular venous distention, Lungs: Good inspiratory effort, no accessory muscle use, clear to auscultation bilaterally, Heart: Regular rate and rhythm, normal S1/S2, no murmurs Abdomen: soft, nontender, nondistended. N. / Rectal: Refused and deferred. Extremities: No Cyanosis , clubbing or edema. Left hip surgical incision intact. Neuro: A&O x 3, Able to move all extremities Skin: warm, no rashes or lesions Psych: Normal mood and affect Discharge Discharge Disposition Patient was discharged to SNF/Subacute Facility(03) Discharge Diagnoses: Stanley Baca MD Oct 11, 2016 14:19
--- NOTE | 2016-10-11 21:42 | Pulmonology Progress Note ---
Assessment/Plan Problems: (1) ACS (acute coronary syndrome) (2) HTN (hypertension) (3) Anemia (4) Prostate cancer Assessment/Plan stress test was negative treat symptomatically monitor bp ok to dc to nursign home Subjective ROS Limited/Unobtainable: No Interval Events: no more chest pain Allergies: Coded Allergies: No Known Allergies (Unverified , 07/29/12) Objective Last 24 Hour Vital Signs Date Time Temp Pulse Resp B/P Pulse Ox O2 Delivery O2 Flow Rate FiO2 10/11/16 11:21 97.2 85 20 109/57 99 Nasal Cannula 1.0 10/11/16 08:30 80 10/11/16 08:00 97.5 67 20 116/57 100 Nasal Cannula 1.5 10/11/16 04:03 98.3 60 19 111/60 92 Room Air 10/11/16 04:00 67 10/11/16 00:28 98.3 61 19 109/62 98 Room Air 10/11/16 00:00 68 Intake and Output 10/10/16 10/11/16 19:00 07:00 Intake Total 240 ml 1150 ml Output Total 150 ml 500 ml Balance 90 ml 650 ml Intake Oral 240 ml 250 ml IV Total 900 ml Output Urine Total 150 ml 500 ml # Voids 1 3 General Appearance: WD/WN HEENT: normocephalic Respiratory/Chest: chest wall non-tender, lungs clear Cardiovascular: normal peripheral pulses, normal rate Abdomen: normal bowel sounds Genitourinary: normal external genitalia Neurologic/Psychiatric: 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
--- NOTE | 2016-10-12 02:08 | Discharge Summary ---
DATE OF ADMISSION: 10/10/2016 DATE OF DISCHARGE: 10/11/2016 HOSPITAL COURSE: This is an 86-year-old very delightful Ecuad[place] gentleman with past medical history significant for recent fall with a right femoral neck fracture at [facility] status post open reduction and internal fixation and subsequently, the patient was discharged to the nursing facility, [facility]. The patient has a history of coronary artery disease status post percutaneous transluminal coronary angioplasty with stent, hypertension, prostate cancer, status post radiation therapy, and dyslipidemia, who has presented to the hospital complaining about chest pain. Shortly after initial evaluation in the emergency room, the patient was admitted to the hospital with chest pain, possible acute coronary syndrome. Throughout the hospital course, the patient was followed by Dr. Soham Jimenes from Cardiology. The patient underwent a stress test, however, he refused to complete the care and preliminary results, nonischemic and subsequently, the patient was discharged back to the rehabilitation center at [place] to continue care. FINAL DIAGNOSES: 1. Chest pain, possible acute coronary syndrome. 2. Status post fall with right hip fracture status post open reduction and internal fixation. 3. Coronary artery disease status post percutaneous transluminal coronary angioplasty with stent. 4. Hypertension. 5. Dyslipidemia. 6. Prostate cancer status post radiation therapy. MEDICATION ON DISCHARGE: Continue discharge medication list. ACTIVITY: As tolerated. DIET: Cardiac diet. FOLLOWUP: The patient will be transferred to the facility. I will follow up at the nursing facility. Stanley Baca M.D. DR: MARYANN JOB#: [id number] CC:
--- NOTE | 2016-10-13 14:32 | Cardiology Report ---
APPROVED REPORT EKG Measurement Heart [id number] MS [id number] Sinus rhythm with 1st degree AV block Otherwise normal ECG
[2016-10-15 08:37] LABS: PSA FREE <0.01 ng/mL; PSA TOTAL <0.1 ng/mL (0.0-4.0)
== END 2016-10-11 15:30 | DRG 311 ==
LOC: EDBD 21:07 → EMR 21:21 → 2E 10-10 01:00 → EDBEDREQ 10-10 01:14 → 2E 10-10 05:20
DX: I24.9 Acute ischemic heart disease, unspecified (principal); I95.9 Hypotension, unspecified; I10 Essential (primary) hypertension; I25.10 Atherosclerotic heart disease of native coronary artery without angina pectoris; Z95.5 Presence of coronary angioplasty implant and graft; E78.5 Hyperlipidemia, unspecified; Z85.46 Personal history of malignant neoplasm of prostate; Z92.3 Personal history of irradiation; K44.9 Diaphragmatic hernia without obstruction or gangrene; S72.001D Fracture of unspecified part of neck of right femur, subsequent encounter for closed fracture with routine healing
CPT/HCPCS: 36415; 71010; 71275; 78451; 80053; 81003; 82550; 82553; 83880; 84153; 84154; 84484; 85025; 85379; 87081; 93005; 93017; 93306; 94664

== ENCOUNTER 2019-08-04 15:34 | Inpatient (IN) | payer MEDICARE, MEDICAID ==
[~2019-08-04] VITALS: Ht 170.2 cm; Wt 68.0 kg
[2019-08-04 15:34] VITALS: BP 109/62
[~2019-08-04 15:34] MED LIST changes: +ACETAMINOPHEN325 M1 ORAL; +ASPIR 8181 MG ORAL; +XARELTO10 MG ORAL
--- NOTE | 2019-08-04 15:44 | NUR ---
ED Nurse Note: Pt brought in by ambulance from care home d/t witnessed seizure by care home staff. According to staff, no head trauma and the seizure lasted for about 1 minute. Pt was sitting in a chair when he seized and did not fall according to staff. Pt baseline A+Ox2, but non-verbal at arrival to ED. Pt is farsi speaking. Respirations even and unlabored on room air. Vitals stable as documented.
--- NOTE | 2019-08-04 15:54 | Emergency Room Report ---
History of Present Illness General Chief Complaint: Seizure Source: Patient, Medical Record Present Illness HPI Patient is a 88-year-old male brought in by EMS after acute onset of altered mental status and witnessed seizure. Patient denied a prior history of seizure disorder. Had previous history of CVA in the past. Had recently been seen at [facility] and had been given work-up which did show some chronic lacunar infarcts. Patient had recently been treated for a urinary tract infection with Levaquin and ertapenem. Per EMS that seizure lasted approximately 7- 8 minutes. Patient did not have any prior history of seizure disorder. Patient had reportedly been normally alert and oriented x2 Allergies: Coded Allergies: No Known Allergies (Unverified , 07/29/12) Patient History Past Medical History: see triage record Reviewed Nursing Documentation: PMH: Agreed; PSxH: Agreed Nursing Documentation-PMH Hx Cardiac Problems: Yes Hx Hypertension: Yes Hx Asthma: Yes Hx Cancer: Yes Hx Gastrointestinal Problems: No Hx Neurological Problems: No Review of Systems All Other Systems: negative except mentioned in HPI Physical Exam Vital Signs Date Time Temp Pulse Resp B/P (MAP) Pulse Ox O2 Delivery O2 Flow Rate FiO2 08/04/19 15:39 98.2 99 16 138/81 (100) 96 Room Air Sp02 EP Interpretation: reviewed, normal General Appearance: alert, Chronically Ill Head: atraumatic ENT: normal ENT inspection, hearing grossly normal, normal voice, dry mucus membranes Neck: normal inspection, supple, no bony tend, limited range of motion Respiratory: normal inspection, lungs clear, normal breath sounds, no respiratory distress, no retraction, no wheezing Cardiovascular #1: regular rate, rhythm, no edema Gastrointestinal: normal inspection, normal bowel sounds, non tender, soft, no guarding, no hernia Genitourinary: no CVA tenderness Musculoskeletal: normal inspection, back normal, normal range of motion Neurologic: alert, responsive, normal inspection Psychiatric: normal inspection, judgement/insight normal, mood/affect normal Skin: no rash Medical Decision Making Diagnostic Impression: Primary Impression: Epileptic seizure, generalized Additional Impression: CVA (cerebral vascular accident) ER Course Patient presented after seizure. Differential diagnosis include was not limited to CVA, arrhythmia, electrolyte abnormality, among others. Because of complexity of patient's case laboratory tests and imaging studies were ordered. Patient's previous imaging studies were reviewed and patient did have some history of bilateral thalamic strokes. Reportedly he is alert and oriented x2 at baseline.EKG interpreted by me showed normal sinus rhythm with first-degree AV block without any acute ST or T wave changes. Rate of 94. Patient's CT imaging did not show any evidence of acute CVA. Patient was given IV Keppra in the emergency department. He was noted to have some improvement in his mental status over time. Dr. Magnus Duong contacted for inpatient management due to primary care physician. Labs Test 08/04/19 16:00 White Blood Count 7.6 K/UL (4.8-10.8) Red Blood Count 4.78 M/UL (4.70-6.10) Hemoglobin 13.9 G/DL (14.2-18.0) Hematocrit 41.2 % (42.0-52.0) Mean Corpuscular Volume 86 FL (80-99) Mean Corpuscular Hemoglobin 29.1 PG (27.0-31.0) Mean Corpuscular Hemoglobin Concent 33.7 G/DL (32.0-36.0) Red Cell Distribution Width 13.9 % (11.6-14.8) Platelet Count 304 K/UL (150-450) Mean Platelet Volume 7.0 FL (6.5-10.1) Neutrophils (%) (Auto) 74.1 % (45.0-75.0) Lymphocytes (%) (Auto) 13.3 % (20.0-45.0) Monocytes (%) (Auto) 11.2 % (1.0-10.0) Eosinophils (%) (Auto) 0.7 % (0.0-3.0) Basophils (%) (Auto) 0.7 % (0.0-2.0) Prothrombin Time 10.7 SEC (9.30-11.50) Prothromb Time International Ratio 1.0 (0.9-1.1) Activated Partial Thromboplast Time 31 SEC (23-33) Sodium Level 145 MMOL/L (136-145) Potassium Level 3.7 MMOL/L (3.5-5.1) Chloride Level 110 MMOL/L (98-107) Carbon Dioxide Level 21 MMOL/L (21-32) Anion Gap 14 mmol/L (5-15) Blood Urea Nitrogen 25 mg/dL (7-18) Creatinine 1.0 MG/DL (0.55-1.30) Estimat Glomerular Filtration Rate > 60 mL/min (>60) Glucose Level 108 MG/DL (74-106) Lactic Acid Level 3.90 mmol/L (0.4-2.0) Calcium Level 7.8 MG/DL (8.5-10.1) Troponin I 0.016 ng/mL (0.000-0.056) EKG Diagnostic Results Rate: normal Rhythm: NSR ST Segments: no acute changes Last Vital Signs Date Time Temp Pulse Resp B/P (MAP) Pulse Ox O2 Delivery O2 Flow Rate FiO2 08/04/19 15:39 98.2 99 16 138/81 (100) 96 Room Air Status: unchanged Disposition: ADMITTED INPATIENT Condition: Stable Chad Smith MD Aug 04, 2019 15:54
[2019-08-04] MEDS ORDERED: levETIRAcetam 500mg/NS100ml 100 ML IVPB ONE (16:15)
[2019-08-04 16:37] LABS: BASOPHILS % (AUTO) 0.7 % (0.0-2.0); EOSINOPHILS % (AUTO) 0.7 % (0.0-3.0); HEMATOCRIT 41.2 % (42.0-52.0); HEMOGLOBIN 13.9 G/DL (14.2-18.0); LYMPHOCYTES % (AUTO) 13.3 % (20.0-45.0); MEAN CORPUSCULAR VOLUME 86 FL (80-99); MONOCYTES % (AUTO) 11.2 % (1.0-10.0); NEUTROPHILS % (AUTO) 74.1 % (45.0-75.0); PLATELET COUNT 304 K/UL (150-450); RED BLOOD COUNT 4.78 M/UL (4.70-6.10); RED CELL DISTRIBUTION WIDTH 13.9 % (11.6-14.8); WHITE BLOOD COUNT 7.6 K/UL (4.8-10.8)
[2019-08-04 16:52] LABS: ANION GAP 14 mmol/L (5-15); BLOOD UREA NITROGEN 25 mg/dL (7-18); CALCIUM 7.8 MG/DL (8.5-10.1); CARBON DIOXIDE 21 MMOL/L (21-32); CHLORIDE 110 MMOL/L (98-107); POTASSIUM 3.7 MMOL/L (3.5-5.1); SODIUM 145 MMOL/L (136-145)
--- NOTE | 2019-08-04 17:00 | NUR ---
ED Nurse Note: son in law @ bedside
[2019-08-04 17:18] LABS: APPEARANCE,URINE CLEAR; BILIRUBIN, URINE NEGATIVE (NEGATIVE); GLUCOSE, URINE (UA) NEGATIVE (NEGATIVE); KETONES,URINE NEGATIVE (NEGATIVE); LEUKOCYTE ESTERASE ,URINE NEGATIVE (NEGATIVE); NITRITE,URINE NEGATIVE (NEGATIVE); PH,URINE 5 (4.5-8.0); PROTEIN,URINE 3+ (NEGATIVE); UROBILINOGEN,URINE NORMAL MG/DL (0.0-1.0)
[2019-08-04 17:19] LABS: ALANINE AMINOTRANSFERASE 49 U/L (12-78); ALBUMIN 2.3 G/DL (3.4-5.0); ALBUMIN/GLOBULIN RATIO 0.8 (1.0-2.7); ALKALINE PHOSPHATASE 113 U/L (46-116); ASPARTATE AMINO TRANSFERASE 29 U/L (15-37); BILIRUBIN,TOTAL 0.3 MG/DL (0.2-1.0); CKMB 1.9 NG/ML (0.0-3.6); CREATINE KINASE 68 U/L (26-308); PHOSPHORUS 2.4 MG/DL (2.5-4.9)
[2019-08-04] MEDS ORDERED: PLAVIX75 MG ORAL (17:23)
--- NOTE | 2019-08-04 17:23 | Diagnostic Imaging Report ---
Indication: Shortness of breath Technique: One view of the chest Comparison: 10/09/2016 Findings: There is marked widening of the upper mediastinum, demonstrated on prior CT scan to represent an enlarged thyroid. There is a retrocardiac hiatal hernia, which appears larger than on the prior study. The lungs and pleural spaces are clear. The heart is upper limits normal in size Impression: Findings as noted. No definite acute process
[2019-08-04 17:24] LABS: COLOR,URINE YELLOW
[2019-08-04 17:33] VITALS: BP 127/69
--- NOTE | 2019-08-04 18:55 | Diagnostic Imaging Report ---
Indications: Altered mental status and seizure Technique: Spiral acquisitions obtained through the brain. Angled axial and coronal 5 x 5 mm slices were reconstructed. Total dose length product 3268 mGycm. CTDI vol(s) 53 x 4 mGy. Dose reduction achieved using automated exposure control Comparison: None. Findings: There is marked age-related enlargement of the ventricles and extra axial CSF spaces. There is considerable periventricular deep white matter low-attenuation, consistent with chronic microvascular ischemic change. There is an old deep white matter infarct in the left posterior frontal periventricular deep white matter. Old bilateral thalamic lacunar infarcts present. Old left basal ganglia lacunar infarct is demonstrated. No acute intracranial hemorrhage or edema. No mass effect nor midline shift. The calvarium is intact. The mastoids are clear. The orbits demonstrate evidence of prior ocular surgery Impression: Extensive chronic and age-related changes Multiple old lacunar infarct Negative for acute intracranial bleed or mass effect This agrees with the preliminary interpretation provided overnight by [facility]erad[facility] service. The CT scanner at [facility] is accredited by the [employer] and the scans are performed using protocols designed to limit radiation exposure to as low as reasonably achievable to attain images of sufficient resolution adequate for diagnostic evaluation.
--- NOTE | 2019-08-04 19:14 | NUR ---
HAND-OFF: Report given to NICO Mallory. Pt is in stable condition; plan of care endorsed.
[2019-08-04 19:15] VITALS: BP 119/73
--- NOTE | 2019-08-04 19:15 | NUR ---
ED Nurse Note: Received report from Elsi WALSH. Pt awake, a&ox2. Not in any distress. Family member at bedside.
[2019-08-04 21:13] VITALS: BP 115/69
--- NOTE | 2019-08-04 21:38 | History & Physical ---
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 HE HAS HAD CAD , CVA , PROSTATE CANCER ADN FENMORAL NECK FRACTURE. Allergies: Coded Allergies: No Known Allergies (Unverified , 07/29/12) Medication History Scheduled Aspirin* (Aspir 81*), 81 MG ORAL DAILY, (Reported) Clopidogrel Bisulfate* (Plavix*), 75 MG ORAL DAILY, (Reported) Rivaroxaban (Xarelto*), 10 MG ORAL DAILY, (Reported) Scheduled PRN Acetaminophen* (Acetaminophen 325MG Tablet*), 325 MG ORAL Q4H PRN for For Pain, (Reported) Miscellaneous Medications Dutasteride (Avodart), PO, (Reported) Prasugrel Hcl (Effient), PO, (Reported) Rosuvastatin Calcium (Crestor), (Reported) Tamsulosin Hcl (Tamsulosin Hcl*), PO, (Reported) Unable to Obtain Medications (Unable To Obtain Meds), (Reported) Medications Narrative TYLENOL PRBNCRESTOR 40 DAILY MOM PRN PLAVIX 75 DAILY Patient History Healthcare decision maker Resuscitation status Advanced Directive on File Review of Systems Review of Symptoms General ROS: HAS HAD SOME WEIGHT LOSS Psychological ROS: PER FAMILTY DUDLEY BEEN SLEEPY MOVES ALL EXTREMITY HE RECOGNIzED ME UNABLE TO TAKE HISTORY F ROMHIM FDAMILY BY BED SIDE. Physical Exam Physical Exam General appearance: CACHECTIC Head: POOR DENTITICION Eyes: CIONJUNCTIVA ANICTERUS Throat: Lips, DRY Neck: no JVD Lungs: clear to auscultation bilaterally Heart: regular rate and rhythm, S1, S2 normal, Abdomen: soft, non-tender. Bowel sounds normal. No masses, no organomegaly Extremities: extremities normal, atraumatic, no cyanosis or edema Skin: Skin color, texture, turgor normal. No rashes or lesions Neurologic: MOVES 4 EXTRREMITY RECOGNIZES ME SLEEPY Last 24 Hour Vital Signs Date Time Temp Pulse Resp B/P (MAP) Pulse Ox O2 Delivery O2 Flow Rate FiO2 08/04/19 19:15 98.0 82 19 119/73 97 Room Air 08/04/19 17:33 97.4 90 16 127/69 95 Room Air 08/04/19 15:39 98.2 99 16 138/81 (100) 96 Room Air 08/04/19 15:34 98 22 08/04/19 15:34 97.3 98 22 109/62 97 Room Air Laboratory Tests Test 08/04/19 16:00 08/04/19 17:00 White Blood Count 7.6 K/UL (4.8-10.8) Red Blood Count 4.78 M/UL (4.70-6.10) Hemoglobin 13.9 G/DL (14.2-18.0) L Hematocrit 41.2 % (42.0-52.0) L Mean Corpuscular Volume 86 FL (80-99) Mean Corpuscular Hemoglobin 29.1 PG (27.0-31.0) Mean Corpuscular Hemoglobin Concent 33.7 G/DL (32.0-36.0) Red Cell Distribution Width 13.9 % (11.6-14.8) Platelet Count 304 K/UL (150-450) Mean Platelet Volume 7.0 FL (6.5-10.1) Neutrophils (%) (Auto) 74.1 % (45.0-75.0) Lymphocytes (%) (Auto) 13.3 % (20.0-45.0) L Monocytes (%) (Auto) 11.2 % (1.0-10.0) H Eosinophils (%) (Auto) 0.7 % (0.0-3.0) Basophils (%) (Auto) 0.7 % (0.0-2.0) Prothrombin Time 10.7 SEC (9.30-11.50) Prothromb Time International Ratio 1.0 (0.9-1.1) Activated Partial Thromboplast Time 31 SEC (23-33) Urine Color Yellow Urine Appearance Clear Urine pH 5 (4.5-8.0) Urine Specific [place] 1.020 (1.005-1.035) Urine Protein 3+ (NEGATIVE) H Urine Glucose (UA) Negative (NEGATIVE) Urine Ketones Negative (NEGATIVE) Urine Blood 4+ (NEGATIVE) H Urine Nitrite Negative (NEGATIVE) Urine Bilirubin Negative (NEGATIVE) Urine Urobilinogen Normal MG/DL (0.0-1.0) Urine Leukocyte Esterase Negative (NEGATIVE) Urine RBC 60-80 /HPF (0 - 0) H Urine WBC 0-2 /HPF (0 - 0) Urine Squamous Epithelial Cells None /LPF (NONE/OCC) Urine Bacteria Few /HPF (NONE) Sodium Level 145 MMOL/L (136-145) Potassium Level 3.7 MMOL/L (3.5-5.1) Chloride Level 110 MMOL/L (98-107) H Carbon Dioxide Level 21 MMOL/L (21-32) Anion Gap 14 mmol/L (5-15) Blood Urea Nitrogen 25 mg/dL (7-18) H Creatinine 1.0 MG/DL (0.55-1.30) Estimat Glomerular Filtration Rate > 60 mL/min (>60) Glucose Level 108 MG/DL (74-106) H Lactic Acid Level 3.90 mmol/L (0.4-2.0) H 2.20 mmol/L (0.66-2.22) Calcium Level 7.8 MG/DL (8.5-10.1) L Phosphorus Level 2.4 MG/DL (2.5-4.9) L Magnesium Level 1.7 MG/DL (1.8-2.4) L Total Bilirubin 0.3 MG/DL (0.2-1.0) Aspartate Amino Transf (AST/SGOT) 29 U/L (15-37) Alanine Aminotransferase (ALT/SGPT) 49 U/L (12-78) Alkaline Phosphatase 113 U/L (46-116) Total Creatine Kinase 68 U/L (26-308) Creatine Kinase MB 1.9 NG/ML (0.0-3.6) Creatine Kinase MB Relative Index 2.7 Troponin I 0.016 ng/mL (0.000-0.056) Pro-B-Type Natriuretic Peptide 361 pg/mL (0-125) H Total Protein 5.1 G/DL (6.4-8.2) L Albumin 2.3 G/DL (3.4-5.0) L Globulin 2.8 g/dL Albumin/Globulin Ratio 0.8 (1.0-2.7) L Microbiology Date/Time Source Procedure Growth Status 08/04/19 16:45 Nasal Nares - Final Complete 08/04/19 16:45 Nasal Nares - Final Complete Height (Feet): 5 Height (Inches): 7.00 Weight (Pounds): 150 Assessment/Plan Status Narrative THIS IS AN UNFOTUNATE MALE WITH HISTORY OF CVA GETTING ADMMITED WITH SEIZURE GIVEN KEPPRA AND DOING OK NOW HE IS POST ICTAL HE HAS BEEN R/O FOR SEIZURE HE WAS ON ERTAPENEM AND THAT IS A POSSIBILITY THE CAUSE OF SEIZURE AND PREVIOUS STRIOKE WELL PLAN NEUROLOGY EVAL [place] PT OT EVLA URINAE TO BE CHECKED WILL VICENTA BELTRAN DVT PROPHYALXIS. [facility] Hospital declaration INPATIENT level of care is warranted for this patient because patient is a 89 year old with who presents with suspicion of . I have a high level of concern because . Patient is at high risk for . Plan of care/treatment include . Patient care is expected to be greater than 2 midnights. OBSERVATION level of care is warranted for this patient. Patient is a 89 year old with who presents with . Patient will be admitted for 1 midnight, but if additional night(s) is/are necessary, patient will be converted to inpatient status for the entire hospitalization Disposition: Once the patient is stable to leave the hospital, I anticipate the patient will likely be discharged to the following environment: Estimated discharge date: I spent 70 minutes on this patient's case, and minutes was dedicated to counseling and/or care coordination. MIPS (Merit-based Incentive Payment System) Applicable CPT: 38938, 96934 CHECK ALL THAT ARE MET: Measure #5 (CHF): All ages. Prescribe MELITA/ARB upon discharge for patients with left ventricular systolic dysfunction. If not, the reason is clearly documented in the medical chart. Measure #8 (CHF): All ages. Prescribe a beta michael upon discharge for patients with left ventricular systolic dysfunction. If not, the reason is clearly documented in the medical chart. Measure #47 Advance care plan or surrogate decision maker documented in the medical record. Measure #130 The provider has documented, updated, or reviewed the patients current medication list and has documented it in the patients note. Measure #374 (All): Send report to referring provider. Measure #407(Sepsis due to MSSA bacteremia): Age 18+ Patient treated with a beta-lactam antibiotic (Nafcillin, Oxacillin or Cefazolin) as definitive therapy. MEDICAL COMPLEXITY High complexity medical decision making (need 2/3 categories) Problem - need 4 points Acute/new problem with new plan for workup (4 points, 1 max) Acute/new problem without additional workup (3 points, 1 max) Unstable chronic problem actively being managed (2 point each, 2 max) Stable chronic problem actively being managed (1 point each, 2 max) Self-limited/transient process (constipation, muscle ache, etc) (1 point each , 2 max) Data - need 4 points Reviewed labs/imaging studies (1 points, 2 max) Independent review of imaging (EKG, xrays, etc) (2 points, 2 max) Discussed case with consult/other MD/RN (2 points, 2 max) High Risk - qualify if have one of the following: Severe exacerbation of acute problem, acute mental status change, IV narcotics , monitoring drug levels (vancomycin, INR, tacrolimus etc) Magnus Duong MD Aug 04, 2019 21:38
[2019-08-04] MEDS ORDERED: Acetaminophen 500mg (ES) tab ORAL ONE (21:45)
--- NOTE | 2019-08-04 22:13 | NUR ---
ED Nurse Note: Bud (family member): [phone].
--- NOTE | 2019-08-04 22:52 | Cardiology Progress Note ---
Assessment/Plan Assessment/Plan [id number] Objective Last 24 Hour Vital Signs Date Time Temp Pulse Resp B/P (MAP) Pulse Ox O2 Delivery O2 Flow Rate FiO2 08/04/19 21:13 97.9 90 22 115/69 100 Room Air 08/04/19 19:15 98.0 82 19 119/73 97 Room Air 08/04/19 17:33 97.4 90 16 127/69 95 Room Air 08/04/19 15:39 98.2 99 16 138/81 (100) 96 Room Air 08/04/19 15:34 98 22 08/04/19 15:34 97.3 98 22 109/62 97 Room Air Laboratory Tests Test 08/04/19 16:00 08/04/19 17:00 White Blood Count 7.6 K/UL (4.8-10.8) Red Blood Count 4.78 M/UL (4.70-6.10) Hemoglobin 13.9 G/DL (14.2-18.0) L Hematocrit 41.2 % (42.0-52.0) L Mean Corpuscular Volume 86 FL (80-99) Mean Corpuscular Hemoglobin 29.1 PG (27.0-31.0) Mean Corpuscular Hemoglobin Concent 33.7 G/DL (32.0-36.0) Red Cell Distribution Width 13.9 % (11.6-14.8) Platelet Count 304 K/UL (150-450) Mean Platelet Volume 7.0 FL (6.5-10.1) Neutrophils (%) (Auto) 74.1 % (45.0-75.0) Lymphocytes (%) (Auto) 13.3 % (20.0-45.0) L Monocytes (%) (Auto) 11.2 % (1.0-10.0) H Eosinophils (%) (Auto) 0.7 % (0.0-3.0) Basophils (%) (Auto) 0.7 % (0.0-2.0) Prothrombin Time 10.7 SEC (9.30-11.50) Prothromb Time International Ratio 1.0 (0.9-1.1) Activated Partial Thromboplast Time 31 SEC (23-33) Urine Color Yellow Urine Appearance Clear Urine pH 5 (4.5-8.0) Urine Specific [place] 1.020 (1.005-1.035) Urine Protein 3+ (NEGATIVE) H Urine Glucose (UA) Negative (NEGATIVE) Urine Ketones Negative (NEGATIVE) Urine Blood 4+ (NEGATIVE) H Urine Nitrite Negative (NEGATIVE) Urine Bilirubin Negative (NEGATIVE) Urine Urobilinogen Normal MG/DL (0.0-1.0) Urine Leukocyte Esterase Negative (NEGATIVE) Urine RBC 60-80 /HPF (0 - 0) H Urine WBC 0-2 /HPF (0 - 0) Urine Squamous Epithelial Cells None /LPF (NONE/OCC) Urine Bacteria Few /HPF (NONE) Sodium Level 145 MMOL/L (136-145) Potassium Level 3.7 MMOL/L (3.5-5.1) Chloride Level 110 MMOL/L (98-107) H Carbon Dioxide Level 21 MMOL/L (21-32) Anion Gap 14 mmol/L (5-15) Blood Urea Nitrogen 25 mg/dL (7-18) H Creatinine 1.0 MG/DL (0.55-1.30) Estimat Glomerular Filtration Rate > 60 mL/min (>60) Glucose Level 108 MG/DL (74-106) H Lactic Acid Level 3.90 mmol/L (0.4-2.0) H 2.20 mmol/L (0.66-2.22) Calcium Level 7.8 MG/DL (8.5-10.1) L Phosphorus Level 2.4 MG/DL (2.5-4.9) L Magnesium Level 1.7 MG/DL (1.8-2.4) L Total Bilirubin 0.3 MG/DL (0.2-1.0) Aspartate Amino Transf (AST/SGOT) 29 U/L (15-37) Alanine Aminotransferase (ALT/SGPT) 49 U/L (12-78) Alkaline Phosphatase 113 U/L (46-116) Total Creatine Kinase 68 U/L (26-308) Creatine Kinase MB 1.9 NG/ML (0.0-3.6) Creatine Kinase MB Relative Index 2.7 Troponin I 0.016 ng/mL (0.000-0.056) Pro-B-Type Natriuretic Peptide 361 pg/mL (0-125) H Total Protein 5.1 G/DL (6.4-8.2) L Albumin 2.3 G/DL (3.4-5.0) L Globulin 2.8 g/dL Albumin/Globulin Ratio 0.8 (1.0-2.7) L Urine Opiates Screen Negative (NEGATIVE) Urine Barbiturates Screen Negative (NEGATIVE) Phencyclidine (PCP) Screen Negative (NEGATIVE) Urine Amphetamines Screen Negative (NEGATIVE) Urine Benzodiazepines Screen Negative (NEGATIVE) Urine Cocaine Screen Negative (NEGATIVE) Urine Marijuana (THC) Screen Negative (NEGATIVE) Microbiology Date/Time Source Procedure Growth Status 08/04/19 16:45 Nasal Nares - Final Complete 08/04/19 16:45 Nasal Nares - Final Complete Soham Jimenes MD Aug 04, 2019 22:52
[2019-08-04 23:18] VITALS: BP 125/75
[2019-08-05] VITALS (7 sets, daily range): BP systolic 112–154; BP diastolic 58–95
--- NOTE | 2019-08-05 00:01 | NUR ---
ED Nurse Note: Pt seen sleeping in bed. Not in any distress. VSS. Will cont to monitor.
--- NOTE | 2019-08-05 02:14 | NUR ---
ED Nurse Note: Report given to Nan WALSH.
--- NOTE | 2019-08-05 02:20 | NUR ---
TRANSFER TO FLOOR: Patient transferred to Telemetry unit. Report given to Nan WALSH. Pt alert and orientedx2, verbally responisve. Not in any distress. Sinus rhythm. IV line on left forearm 20g patent and intact. Swabs are sent. Med recon done. Belongings list done. All belongings sent with the patient. Fmaily members aware of the transfer.
--- NOTE | 2019-08-05 03:02 | NUR ---
NURSE NOTES: Received report from JORGE Mallory RN. Patient was transferred to Telemetry unit from ER via draw sheet method, 3 staff member assist without incident. No signs of acute distress or pain noted at this time. AOx1-2; unable to make needs known. Primarily Farsi speaking. Checked IV site; patent and flushed. No erythema, bleeding, or infiltration noted. Patient put on Tele box; sinus rhythm w/ 1st degree AV block on the monitor (90s). Belongings list checked with transferring RN. Skin assessment performed; no wounds noted. Skin intact. Bed at lowest position, brakes on, siderails up x3. Siderails padded following seizure precautions. Suction at bedside. Call light within reach. Will continue to monitor.
[2019-08-05] MEDS: D5 1/2NS w/KCl 20mEq 1,000 ML IV SCH ×2 (03:04→18:22)
[2019-08-05] MEDS ORDERED: MILK OF MA400 MG/51 ORAL (03:37)
[2019-08-05] MEDS ORDERED: CRESTOR40 MG ORAL (03:37)
[2019-08-05] MEDS ORDERED: DULCOLAX10 MG RC (03:37)
[2019-08-05] MEDS ORDERED: FLEET ENEMA133 ML RECTAL (03:37)
[2019-08-05] MEDS ORDERED: Acetaminophen 500mg (ES) tab ORAL SCH (04:30)
--- NOTE | 2019-08-05 06:20 | NUR ---
NURSE NOTES: Called Dr. Duong for additional admission orders. Received new orders. Noted and carried out.
[2019-08-05] MEDS: Heparin 5000 units/ml inj SUBQ SCH ×3 (06:28→22:22)
[2019-08-05 07:42] LABS: BASOPHILS % (AUTO) 0.3 % (0.0-2.0); EOSINOPHILS % (AUTO) 0.6 % (0.0-3.0); HEMATOCRIT 38.1 % (42.0-52.0); HEMOGLOBIN 12.9 G/DL (14.2-18.0); LYMPHOCYTES % (AUTO) 11.4 % (20.0-45.0); MEAN CORPUSCULAR VOLUME 87 FL (80-99); NEUTROPHILS % (AUTO) 77.7 % (45.0-75.0); PLATELET COUNT 264 K/UL (150-450); RED CELL DISTRIBUTION WIDTH 13.7 % (11.6-14.8); WHITE BLOOD COUNT 8.4 K/UL (4.8-10.8)
--- NOTE | 2019-08-05 07:45 | NUR ---
HAND-OFF: Report given to NICO Rodriguez. Patient is asleep lying semi-shaikh's; resting comfortably. In stable condition.
[2019-08-05 08:04] LABS: ALANINE AMINOTRANSFERASE 50 U/L (12-78); ALBUMIN 2.4 G/DL (3.4-5.0); ALBUMIN/GLOBULIN RATIO 0.6 (1.0-2.7); ALKALINE PHOSPHATASE 130 U/L (46-116); ANION GAP 14 mmol/L (5-15); ASPARTATE AMINO TRANSFERASE 36 U/L (15-37); BILIRUBIN,TOTAL 0.6 MG/DL (0.2-1.0); CALCIUM 8.9 MG/DL (8.5-10.1); CARBON DIOXIDE 23 MMOL/L (21-32); CHLORIDE 104 MMOL/L (98-107); CREATININE 0.9 MG/DL (0.55-1.30); POTASSIUM 4.2 MMOL/L (3.5-5.1); SODIUM 141 MMOL/L (136-145)
[2019-08-05 08:13] LABS: BLOOD UREA NITROGEN 20 mg/dL (7-18)
[2019-08-05] MEDS ORDERED: levETIRAcetam 500mg/NS100ml 100 ML IVPB SCH (09:00)
[2019-08-05] MEDS: Aspirin EC 81mg tab ORAL SCH (09:25)
--- NOTE | 2019-08-05 09:27 | General Progress Note ---
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 Assessment/Plan: NEUROLOGY EVAL STOPPPED ANTIBIOTIC NO PYURIA PER NEUROLOGY W ILLL MONITOR DEVIN Subjective Date patient seen: Aug 05, 2019 Time patient seen: 09:25 Gastrointestinal/Abdominal: Reports: poor fluid intake Allergies: Coded Allergies: No Known Allergies (Unverified , 07/29/12) Subjective MORE AWAKE ALERT MORE ORIENTED' Objective Last 24 Hour Vital Signs Date Time Temp Pulse Resp B/P (MAP) Pulse Ox O2 Delivery O2 Flow Rate FiO2 08/05/19 04:00 89 08/05/19 03:24 Room Air 08/05/19 03:02 96 08/05/19 03:00 97.5 98 18 132/95 (107) 97 08/05/19 02:20 97.6 87 19 121/67 99 Room Air 08/05/19 02:20 97.6 87 19 121/67 99 Room Air 08/05/19 01:31 97.9 88 16 124/69 98 Room Air 08/04/19 23:18 98.3 95 23 125/75 98 Room Air 08/04/19 21:13 97.9 90 22 115/69 100 Room Air 08/04/19 19:15 98.0 82 19 119/73 97 Room Air 08/04/19 17:33 97.4 90 16 127/69 95 Room Air 08/04/19 15:39 98.2 99 16 138/81 (100) 96 Room Air 08/04/19 15:34 98 22 08/04/19 15:34 97.3 98 22 109/62 97 Room Air Intake and Output 08/04/19 08/05/19 19:00 07:00 Intake Total 1100 ml 295 ml Balance 1100 ml 295 ml Intake Oral 0 ml IV Total 1100 ml 295 ml # Voids 2 Laboratory Tests 08/04/19 16:00: White Blood Count 7.6, Red Blood Count 4.78, Hemoglobin 13.9L, Hematocrit 41.2L , Mean Corpuscular Volume 86, Mean Corpuscular Hemoglobin 29.1, Mean Corpuscular Hemoglobin Concent 33.7, Red Cell Distribution Width 13.9, Platelet Count 304, Mean Platelet Volume 7.0, Neutrophils (%) (Auto) 74.1, Lymphocytes (% ) (Auto) 13.3L, Monocytes (%) (Auto) 11.2H, Eosinophils (%) (Auto) 0.7, Basophils (%) (Auto) 0.7, Prothrombin Time 10.7, Prothromb Time International Ratio 1.0, Activated Partial Thromboplast Time 31, Urine Color Yellow, Urine Appearance Clear, Urine pH 5, Urine Specific [place] 1.020, Urine Protein 3+H, Urine Glucose (UA) Negative, Urine Ketones Negative, Urine Blood 4+H, Urine Nitrite Negative, Urine Bilirubin Negative, Urine Urobilinogen Normal, Urine Leukocyte Esterase Negative, Urine RBC 60-80H, Urine WBC 0-2, Urine Squamous Epithelial Cells None, Urine Bacteria Few, Sodium Level 145, Potassium Level 3.7 , Chloride Level 110H, Carbon Dioxide Level 21, Anion Gap 14, Blood Urea Nitrogen 25H, Creatinine 1.0, Estimat Glomerular Filtration Rate > 60, Glucose Level 108H, Lactic Acid Level 3.90H, Calcium Level 7.8L, Phosphorus Level 2.4L, Magnesium Level 1.7L, Total Bilirubin 0.3, Aspartate Amino Transf (AST/SGOT) 29 , Alanine Aminotransferase (ALT/SGPT) 49, Alkaline Phosphatase 113, Total Creatine Kinase 68, Creatine Kinase MB 1.9, Creatine Kinase MB Relative Index 2.7, Troponin I 0.016, Pro-B-Type Natriuretic Peptide 361H, Total Protein 5.1L, Albumin 2.3L, Globulin 2.8, Albumin/Globulin Ratio 0.8L, Urine Opiates Screen Negative, Urine Barbiturates Screen Negative, Phencyclidine (PCP) Screen Negative, Urine Amphetamines Screen Negative, Urine Benzodiazepines Screen Negative, Urine Cocaine Screen Negative, Urine Marijuana (THC) Screen Negative 08/04/19 17:00: Lactic Acid Level 2.20 08/05/19 07:30: White Blood Count 8.4, Red Blood Count 4.40L, Hemoglobin 12.9L, Hematocrit 38.1L , Mean Corpuscular Volume 87, Mean Corpuscular Hemoglobin 29.3, Mean Corpuscular Hemoglobin Concent 33.7, Red Cell Distribution Width 13.7, Platelet Count 264, Mean Platelet Volume 6.8, Neutrophils (%) (Auto) 77.7H, Lymphocytes ( %) (Auto) 11.4L, Monocytes (%) (Auto) 10.0, Eosinophils (%) (Auto) 0.6, Basophils (%) (Auto) 0.3, Sodium Level 141, Potassium Level 4.2, Chloride Level 104, Carbon Dioxide Level 23, Anion Gap 14, Blood Urea Nitrogen 20H, Creatinine 0.9, Estimat Glomerular Filtration Rate > 60, Glucose Level 110H, Calcium Level 8.9, Total Bilirubin 0.6, Aspartate Amino Transf (AST/SGOT) 36, Alanine Aminotransferase (ALT/SGPT) 50, Alkaline Phosphatase 130H, Troponin I 0.038, Total Protein 6.4, Albumin 2.4L, Globulin 4.0, Albumin/Globulin Ratio 0.6L Height (Feet): 5 Height (Inches): 7.00 Weight (Pounds): 150 General Appearance: no apparent distress Neck: non-tender Cardiovascular: normal rate, regular rhythm, no JVD Respiratory/Chest: lungs clear Abdomen: non tender, soft Edema: other - NO EDEMA Magnus Duong MD Aug 05, 2019 09:27
--- NOTE | 2019-08-05 12:03 | NUR ---
ST NOTES: REFERRED FOR SWALLOW EVAL BY DR. ALEKSANDER PEREZ, SEE FULL REPORT. DYSPHAGIA RISK FACTORS FOR THIS 88 Y.O. FARSI-SPEAKING MALE: ACUTE ISSUES: NEW ONSET SEIZURE (POST ICTAL), DEHYDRATION, LUNGS ARE CLEAR NOW. 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 NO POLST REGARDING TUBE FEEDINGS IN PAPER CHART. AT [facility] ON A HEALTHY HEART PUREED AND THIN LIQUIDS DIET THEN UPGRADED TO THE [facility] SOFT GROUND AND THIN LIQUIDS ON 08/02/19. NOW ON A PUREED AND THIN LIQUID DIET (CARDIAC AND LOW NA). HIS SON IS HERE TO FEED HIM HE IS VERY RESTLESS AND KEEPS LIFTING UP HIS GOWN. SPEAKS FARSI AND VOICE IS SOFT AND SOMETIMES BREATHY. POOR SPEECH INTELLIGIBILITY AND CONFUSED. MIN DENTITION TOP/BOTTOM AND NO DENTURES. DID NOT FOLLOW ORAL COMMANDS. ON ROOM AIR. INITIAL IMPRESSIONS: S/S OF DYSPHAGIA WITH THIN LIQUIDS TSP LEVEL (COUGHED AFTER THE SWALLOW) SLOWER SWALLOW WITH PUREED TSP, SWALLOWED WITH FAIR HYOLARYNGEAL EXCURSION IN A FEW SECONDS AFTER CHEWING BOLUS UNNECESSARILY (ORAL SENSORY AWARENESS DEFICIT LIKELY), MIN ORAL RESIDUE ON MID TONGUE WITH CUED SECOND SWALLOW, NO OVERT ASPIRATION GIVEN NECTAR THICK LIQUIDS VIA TSP, SWALLOWED WITH FAIR HYOLARYNGEAL EXCURSION AFTER 2-3 SECONDS, NO ORAL RESIDUE NO OVERT ASPIRATION. GIVEN SIP VIA CUP, SWALLOWED AFTER 4 SECOND DELAY, NO ORAL RESIDUE, NO OVERT ASPIRATION. SEQUENTIAL SIPS VIA STRAW, NO OVERT ASPIRATION BUT SLOWER ABILITY TO WITH SUCTION. HAS SILENT ASPIRATION RISK DUE TO CVA/ALZHEIMER'S DZ DEMENTIA DIAGNOSES RECOMMENDATIONS: COMPLETE MOD BARIUM SWALLOW STUDY TO FURTHER ASSESS SWALLOW, DETERMINE SILENT ASP RISK AND ATTEMPT TRIAL TX IF PO CONTINUES FOR QUALITY OF LIFE, CONSIDER CONTINUING WITH MOIST PUREED DIET BUT DOWNGRADE TO NECTAR THICK LIQUIDS FOR NOW WITH POSTED ASP/REFLUX PRECAUTIONS AND ONE TO ONE FEEDING. SEND DIET TYPE/HIGH KAROL SUP PER RD (NOW ON CARDIAC/LOW PER MD) SKILLED DYSPHAGIA MANAGEMENT AND TX AND COG-COM EVAL/TX FOR COMMUNICATION TIPS. EDUCATED/TRAINED RN AND HIS SON IN POSTED PRECAUTIONS.
--- NOTE | 2019-08-05 13:51 | NUR ---
CASE MANAGEMENT: INITIAL REVIEW 88 YO M JEISON FROM REHAB OF CC: AMS. WITNESSED SZ PMHx: ASTHMA. SI:NEW ONSET SZ/DEHYDRATION T 98.2 HR 99 RR 16 B/P 138/81 SATS 96% ON RA LABS: CL 110 BUN 25 GLU 108 CA 7.8 PHOS 2.4 MG 1.7 BNP 361 IS: NS BOLUS X1 KEPPRA IV X1 PATIENT ADMITTED TO TELE 08/04/2019 @ 2534 DCP: SNF PLAN OF CARE: EEG PT EVAL ST EVAL Addendum: 08/05/19 at 1400 by Alix Rodríguez CM INTERQUAL MET
--- NOTE | 2019-08-05 15:09 | NUR ---
P.T Note: late entry 1030 P.T evaluation completed and tx initiated with son present in room. Please refer to P.T evaluation for current functional status. Pt is alert, oriented to person and place but not time and current situation. Pt able to follows simple commands and cooperative. Pt indicated pain on B knees aggravated by movement 5/10 per Perrin Lopez scale. Pt is generally weak and decondition. Pt required MAX A to turn/roll and supine to/from sitting. Pt able to sit with mod support however unable to stand. Overall fair activity tolerance. Pt will benefit from skilled P.T services to improve strength , balance and endurance to increase mobility independence. Recommend SNF for further rehab intervention at [place].
--- NOTE | 2019-08-05 15:15 | Consultation ---
DATE OF CONSULTATION: 08/05/2019 NOTE: "POOR AUDIO QUALITY" CARDIOLOGY CONSULTATION CONSULTING PHYSICIAN: Soham Jimenes M.D. REFERRING PHYSICIAN: Magnus Duong M.D. REASON FOR REFERRAL: Seizures and history of coronary artery disease. HISTORY OF PRESENT ILLNESS: This is an 88-year-old gentleman who is really not able to provide any meaningful history whatsoever. The patient's information is obtained from review of the patient's condition with the family members in addition to review of the patient's [facility] chart. According to the family, the patient was hospitalized at [facility] a few weeks ago and was diagnosed with urinary tract infection. Subsequently, they were told that the patient may have had a stroke. The patient was transferred to a convalescent facility where he was at. According to his family members, he has been fed a diet of either pureed or thickened liquid and he has been doing relatively well. Yesterday, the family was not with the patient at all and they were notified that the patient had a seizure. He was brought to the emergency room at [facility] and now he is not really able to communicate. According to his family members, since the stroke, he has not been able to walk his mentation has significantly deteriorated, talking nonsense at times, and not really making sense and not walking, but he has been able to . There are no reports of any complaints from the family members that the patient has been able to voice. PAST MEDICAL HISTORY: Positive for history of hospitalization back in June at [facility]. Diagnosis that was provided is an acute left coronary infarction as well as mechanical fall with right hip fracture, status post right hemiarthroplasty, history of prostate cancer, status post radiation therapy, coronary artery disease, status post PTCA with a stent, hyperlipidemia, history of partial thyroidectomy, infrarenal abdominal aortic aneurysm, history of hypovolemia, dehydration, toxic metabolic encephalopathy secondary to UTI as well as UTI. He also has history of hypertension and prior multiple CVAs. Family members indicate that the patient has previously been seen also by and has had peripheral arterial disease, hyperlipidemia, venous insufficiency of both lower extremities, chronic pain, posterior bursitis, and hip replacement as well. Details of his percutaneous coronary intervention are not immediately available for review. SOCIAL HISTORY: There has been no reports of alcohol or tobacco intake. At the present time, the patient is residing at a convalescent facility. Very supportive family members are following him. REVIEW OF SYSTEMS: GASTROINTESTINAL: There have been no reports of nausea, vomiting, diarrhea, or constipation according to his son. GENITOURINARY: No reported discomfort on urination. PULMONARY: No significant coughing unless the patient takes liquid diet. CONSTITUTIONAL: There have been no reports of fevers or chills. PHYSICAL EXAMINATION: GENERAL: Shows an agitated, elderly gentleman in left lateral decubitus position, in no respiratory distress. NECK: Supple. LUNGS: Appear to be clear to auscultation and percussion. CARDIAC: Regular rate and rhythm. No heaves or thrills noted. ABDOMEN: Soft. Positive bowel sounds. EXTREMITIES: There is no clubbing or cyanosis nor is there any edema. NEUROLOGIC: He is agitated, but responsive to minimal degree and was not really communicative. LABORATORY AND DIAGNOSTIC DATA: His EKG personally reviewed appears to be sinus with premature ventricular complexes. White count of 7.6, hemoglobin 13.9, and platelet count of 304,000. Sodium 145, potassium 3.7, chloride 110, bicarb 21, BUN 25, creatinine 1.1, and glucose of 108. Lactic acid 3.9, . Calcium 7.8, magnesium 1.7. Liver function tests are normal. Troponin 0.016. ProBNP only 361. Total protein 5.1 and albumin of 2.3. His coags, INR of 1 and PTT of 31. Urinalysis shows 60-80 rbc's, only 0-2 wbc's, 4+ blood. Toxicology screen is unremarkable. The patient had a CT scan of his head performed in the emergency room that showed no intracranial hemorrhage, mass effect, or edema; global parenchymal atrophy chronic microvascular ischemic changes, a few chronic lacunar infarctions hendrickson radiata and basal ganglia. No large area of territorial infarctions. The chest x-ray shows marked widening of superior mediastinum previously shown to be represented by an enlarged thyroid. There is a retrocardiac hiatal hernia that appears larger than on prior study. Lungs otherwise are clear. ASSESSMENT AND PLAN: 1. Seizures. 2. History of CVA. 3. Metabolic encephalopathy versus postictal state versus others. 4. Large hiatal hernia. 5. Hyperlipidemia. 6. Hypertension history. 7. Remote history of coronary artery disease. 8. History of prostate cancer, status post radiation therapy. Dr. Duong, this patient was seen in cardiac consultation. As discussed, for neurologic consultation may be in order to determine the exact etiology of the patient's seizures whether related to the medications including the antibiotics or whether related to a focal brain lesion from the last CVA. From a cardiac point of view, his EKG does not show any evidence of myocardial ischemia and cardiac enzymes are minimally abnormal. The patient has been altered, however, at the present time and this is of course multifactorial in origin. The patient's usual medications should be continued including if possible his antiplatelet agents as well as statins, and any further recommendations will be provided on as-needed basis and reports of that further testing. EKG of course would be repeated. Of note, on July 09, the patient did have an echocardiogram at [facility] that is likely not to be repeated. Ejection fraction was 61%. Wall motion was normal. Moderate tricuspid regurgitation and pulmonary artery systolic pressure of 25-plus. The patient is poorly cooperative at that time. Soham Jimenes M.D. DR: Lakshmi JOB#: [id number] CC:
--- NOTE | 2019-08-05 16:15 | Consultation ---
DATE OF CONSULTATION: 08/05/2019 NEUROLOGIC CONSULTATION CONSULTING PHYSICIAN: Kiel Staley M.D. CHIEF COMPLAINT: This is the second [facility] admission for this 88-year-old right-handed [place] Citizen [place] man with a previous history of acute coronary artery disease with at least 2 stents placed, cervical spine degenerative joint disease, history of back pain, and a prior right hip replacement 2 to 3 years ago was admitted with a chief complaint of altered mental status and seizure. The patient also has a history of prostate cancer with radiation. About 2 years ago, the patient's memory was good, but over the last few months he has had more memory loss. He has had trouble walking for at least 2 to 3 years because of his hip replacement. He uses a walker. The patient 3 weeks ago was taken to [facility] for a probable stroke. He had CT and MRI scan, which revealed a cerebral infarction. He also had a urinary tract infection and was placed on IV antibiotics. After 2 days, he was sent to rehabilitation center and developed pneumonia after a chest x-ray was taken a week ago. The patient was treated with antibiotics. He is also on aspirin 81 mg, Plavix 75 mg, tamsulosin, and Crestor for hyperlipidemia. The patient's recent antibiotic was ertapenem. He did have a seizure and was brought to this hospital. His CBC revealed he was anemic with a normal platelet count and normal white count. His urinalysis yesterday was essentially normal except for elevated rbc count and 3+ protein. Chemistry revealed a high lactic acid of 3.9, which is normalized. His BUN was 20 with a normal creatinine. Blood sugar today was 110, it was 108 on admission. His calcium was low at 7.8 with a low albumin of 2.3. Magnesium was 1.7. The initial BUN was 25. He had an EKG, which revealed sinus tachycardia. Drug screen yesterday was negative. PT and PTT were normal. Troponin levels were normal. The patient got two IV Keppra doses of 500 mg. The patient had a chest x-ray yesterday revealing an enlarged thyroid and a hiatal hernia. The heart was in the upper limits of normal in size. The lungs were basically normal. CT scan of the brain revealed a few chronic lacunar infarcts within the left hendrickson radiata and basal ganglia. There is large territory acute appearing infarct. The patient's hearing appears to be "not bad" for his age. He was having trouble feeding himself and dressing himself lately. There is no history of headaches. No previous seizures. There is no other history available. There is no family history of neurologic disease. PAST MEDICAL HISTORY/PAST MEDICAL ILLNESSES: See above. Thyroid nodule or hyperthyroidism. ALLERGIES: No known allergies. HABITS: He does not drink or smoke at this time. PAST SURGICAL HISTORY: 1. He had a fracture of the right femoral head. See above. 2. Partial thyroidectomy. REVIEW OF SYSTEMS: See above. The rest of the review of systems are noncontributory. PHYSICAL EXAMINATION: GENERAL: The patient is a well-developed, overweight man, lying in bed, confused, but awake and alert. VITAL SIGNS: Blood pressure is 133/95, pulse is 89, basically regular, temperature is 97.5 degrees, respiration rate is 18. HEENT: Examination of head reveals poor dentition. NECK: His neck is stiff in all 4 directions. There is tenderness to palpation. Carotids were +1. No bruits could be appreciated. There were breath sounds. LUNGS: Appeared to be clear to auscultation. CARDIOVASCULAR: PMI was not felt. JVP was not seen, were flat. The patient had normal S1. S2 is physiologically split. No murmurs, rubs, S3, or S4 were noted. ABDOMEN: Soft. Bowel sounds were intact. There is no tenderness, masses, or organomegaly appreciated. BACK: Difficult to evaluate. EXTREMITIES: Revealed some degenerative joint disease. NEUROLOGIC EXAMINATION: MENTAL STATUS: The patient was alert and awake. Date, he did not know the year. Place, he did not know where he was. Person, he is oriented to person. Judgment could not be tested. Affect was probably appropriate. He seemed to be in rather good spirits. Memory, past memory is intact to his birthday and where he was born. Immediate recall could not be tested. Intellect could not be tested. CRANIAL NERVE EXAMINATION: CRANIAL NERVE II: Visual armijo appeared to be intact to confrontation. CRANIAL NERVES III, IV, AND : Extraocular motility was full. Pupils are 3 mm on the left, 2.5 mm on the right, both sluggishly reactive. CRANIAL NERVE V: Corneal sensation appeared to be intact bilaterally. CRANIAL NERVE VII: Facial strength appeared to be symmetrical bilaterally. CRANIAL NERVE VIII: Auditory acuity was partially intact. CRANIAL NERVES IX AND X: Gag was decreased. CRANIAL NERVE XI: Sternocleidomastoid strength is 5/5. CRANIAL NERVE XII: Tongue protrudes is in the midline without fasciculations or atrophy. MUSCLE EXAMINATION: Muscle bulk appeared to be normal. Tone reveals paratonia in the upper and lower extremities. It was difficult to move the right lower extremity because of complaints of pain. Strength is at least 4/5 in the upper extremities. There is decreased movement in both lower extremities, could not be tested. REFLEXES: +1 in the upper extremities, 0 at the knees and ankles. He had an upgoing toe on the right side and a downgoing toe on the left side on testing for Babinski response. COORDINATION: Bkxlrq-sntukh-nbct testing was grossly intact. GAIT AND STATION: Could not be tested. SENSORY EXAMINATION: Intact to deep pain. IMPRESSION: This patient has diffuse encephalopathy, probably related to his previous urinary tract infection and now may actually be partially postictal. The metabolic encephalopathy may be superimposed on I suspect Alzheimer disease and with associated cerebrovascular disease with lacunar infarctions, which are generally due to small vessel disease. The patient also has a history of hypertension, which is the cause of his problem. Prostate cancer can cause a hypercoagulable state. I do not think strokes at this point. In other words, I do not think he has nonbacterial thrombotic endocarditis. I am going to continue him on his Keppra 500 mg p.o. b.i.d. although I think the seizure was probably due to his antibiotic as well as related to cerebrovascular disease. occurs generally less than 1% of the patients can also cause a myoclonus and confusional state. However, he is off the antibiotic at this time. An EEG will be obtained. Keppra will be continued. PLAN: 1. Continue Keppra 500 mg p.o. b.i.d. 2. EEG awake and asleep. 3. Try to get his previous medical records from [facility]. Thank you for this interesting case. Kiel Staley MD DR: VIJAY JOB#: [id number] CC:
--- NOTE | 2019-08-05 19:15 | NUR ---
NURSE NOTES: Got report from Michael WALSH. Pt in stable condition. Denies any pain. No s/s of distress or discomfort noted. Pt resting in bed comfortably. Bed in low and locked position, call light within reach, bedside table within reach. Continue to monitor.
[2019-08-05] MEDS: levETIRAcetam 500mg/NS100ml 100 ML IVPB SCH (21:00)
[2019-08-06] VITALS: BP 115/75
[2019-08-06 04:00] VITALS: BP 115/80
[2019-08-06] MEDS: D5 1/2NS w/KCl 20mEq 1,000 ML IV SCH (05:28)
[2019-08-06] MEDS: Heparin 5000 units/ml inj SUBQ SCH ×2 (06:00→15:44)
--- NOTE | 2019-08-06 07:45 | NUR ---
HAND-OFF: Report given to Michael WALSH.
[2019-08-06 08:00] VITALS: BP 125/58
[2019-08-06] MEDS: levETIRAcetam 500mg/NS100ml 100 ML IVPB SCH (08:39)
[2019-08-06] MEDS: Aspirin EC 81mg tab ORAL SCH (08:39)
[2019-08-06] MEDS ORDERED: D5 1/2NS w/KCl 20mEq 1,000 ML IV SCH (09:00)
--- NOTE | 2019-08-06 09:02 | Discharge Summary ---
Discharge Summary Discharge Summary _ discharge summary: reason for admmission possible seizure this is na uinfortunate male withhistory of stroke whjo has volume los sinthe brenden presented with possible seizutre he wa on antibniotic with ertepenem and had seizure seizure is known side effect of this class of antibiotic doing momo more alrert and pooriented. plan discharge to [facility] sdiscussed with dr namrata cook. Magnus Duong MD Aug 06, 2019 09:02
--- NOTE | 2019-08-06 10:44 | NUR ---
*-*DISCHARGE PLANNING*-* PATIENT HAS BEEN REFERRED TO: [facility] P: [phone] F: [phone] *-*CLINICALS FAXED*-* Addendum: 08/06/19 at 1047 by JADA MOY CM *-*DISCHARGE PLANNING*-* PATIENT HAS BEEN REFERRED BACK TO: [facility] P: [phone] F: [phone] *-*CLINICALS FAXED*-*
[2019-08-06 12:00] VITALS: BP 144/78
--- NOTE | 2019-08-06 13:40 | Cardiology Progress Note ---
Assessment/Plan Assessment/Plan 1. Seizures. 2. History of CVA. 3. Metabolic encephalopathy versus postictal state versus others. 4. Large hiatal hernia. 5. Hyperlipidemia. 6. Hypertension history. 7. Remote history of coronary artery disease. 8. History of prostate cancer, status post radiation therapy. is sleeping with avocado in his mouth says she put in there so he will eat !! warned nto to feed pt unless fully awake bp i ok bc neg tele sinus labs noted dc plan sper dr jaramillo Subjective ROS Limited/Unobtainable: Yes Objective Last 24 Hour Vital Signs Date Time Temp Pulse Resp B/P (MAP) Pulse Ox O2 Delivery O2 Flow Rate FiO2 08/06/19 12:00 98.1 84 20 144/78 (100) 96 08/06/19 12:00 89 08/06/19 09:00 Room Air 08/06/19 08:00 84 08/06/19 08:00 98.2 83 20 125/58 (80) 95 08/06/19 04:00 87 08/06/19 04:00 98.1 85 20 115/80 (92) 98 08/06/19 00:00 89 08/06/19 00:00 97.9 95 18 115/75 (88) 97 08/05/19 21:00 Room Air 08/05/19 20:00 97.9 97 20 128/89 (102) 97 08/05/19 20:00 96 08/05/19 16:00 98.0 76 17 112/58 (76) 98 General Appearance: no apparent distress Neck: supple Cardiovascular: normal rate Respiratory/Chest: lungs clear Abdomen: normal bowel sounds, non tender Extremities: no swelling Intake and Output 08/05/19 08/06/19 19:00 07:00 # Voids 5 4 # Bowel Movements 2 Microbiology Date/Time Source Procedure Growth Status 08/04/19 16:00 Blood Blood Culture - Preliminary NO GROWTH AFTER 24 HOURS Resulted 08/04/19 15:45 Blood Blood Culture - Preliminary NO GROWTH AFTER 24 HOURS Resulted 08/04/19 16:45 Nasal Nares - Final Complete 08/04/19 16:45 Nasal Nares - Final Complete 08/04/19 16:00 Urine,Clean Catch Urine Culture - Preliminary NO GROWTH AFTER 24 HOURS Resulted 08/05/19 02:30 Rectum Ordered Soham Jimenes MD Aug 06, 2019 13:40
--- NOTE | 2019-08-06 13:49 | NUR ---
CASE MANAGEMENT: REVIEW 08/06/19 SI:NEW ONSET SZ/DEHYDRATION 98.1 84 20 144/78 96% ON RA IS: IV D5@125ML/HR IV LEVETIRACETAM BID HEPARIN SQ TID PLAVIX PO QD ASPIRIN PO QD \: 2E TELE UNIT DCP[facility] PLAN: DISCHARGE
--- NOTE | 2019-08-06 15:00 | Electroencephalogram ---
DATE OF PROCEDURE: 08/05/2019 ELECTROENCEPHALOGRAM REPORT REQUESTING PHYSICIAN: Kiel Staley M.D. READING PHYSICIAN: Drew Louis M.D. HISTORY: This EEG was performed on 88-year-old gentleman with history of multiple medical problems including cerebrovascular disease with prior strokes who was noted to have a seizure. The purpose of this EEG was to evaluate the patient for ongoing ictal or interictal phenomena. TECHNICAL NOTE: This EEG was performed on a [employer] with electrodes placed on the scalp according to the International 10-20 system. [id number] and gatuc-cc-hzj montages were used. The EEG was technically satisfactory and was performed in the awake and drowsy states. OBSERVATIONS: In the best-awake state, the background activity consisted of 6-7 Hz rhythmic theta activity. Drowsiness was characterized by irregular 4-5 Hz theta with intermixed delta frequencies. No definite focal abnormalities or epileptiform discharges were seen. IMPRESSION: This is an abnormal EEG characterized by slowing of the background in the 6-7 Hz theta range in the best-awake state. COMMENT: This study is consistent with an encephalopathy of a moderate degree. Please note that no interictal discharges were seen during this EEG. Drew Louis M.D., M.S.P.H. Clinical Neurophysiologist DR: Latha JOB#: [id number] MTDKaren
--- NOTE | 2019-08-06 15:12 | NUR ---
*-*DISCHARGE PLANNING*-* PATIENT [facility] P: [phone] F: [phone]
--- NOTE | 2019-08-06 15:13 | NUR ---
*-*DISCHARGE PLANNED*-* PATIENT [facility] BE[facility] P: [phone] F: [phone] RM# [id number] [facility] S/W [place] [id number] ETA 4:30PM/1630PM
--- NOTE | 2019-08-06 16:30 | Consultation ---
DATE OF CONSULTATION: 08/06/2019 CONSULTING PHYSICIAN: Mirna De Jesus M.D. REFERRING PHYSICIAN: Magnus Duong M.D. HISTORY OF PRESENT ILLNESS: This is an 88-year-old male with a history of multiple medical issues including prostate cancer, hypertension, CVA, dehydration, who has been admitted to the hospital for medical stabilization. The patient has a history of altered mental status and seizure. Upon evaluation, the patient is anxious and tangential. He acute distress. He has memory impairment and is a poor historian. Waxing and waning consciousness. PAST PSYCHIATRIC HISTORY: Anxiety, depression, on no psychotropic medications. PAST MEDICAL HISTORY: As above. ALLERGIES: No known drug allergies. SUBSTANCE ABUSE HISTORY: No known history of illicit drug use or alcohol. MENTAL STATUS EXAMINATION: The patient is alert, oriented times self, place. Mood is anxious. Affect is flat. Thought process is concrete. Thought content, no suicidal or homicidal ideation. ASSESSMENT: Shawnee I Anxiety disorder. Dementia. Shawnee II Deferred. Shawnee III As above. [place]nee IV Low. [place]nee V 20. PLAN: 1. We will start the patient on Lexapro 10 mg in the morning. 2. Provide the patient with reality orientation and supportive therapy. Mirna De Jesus M.D. DR: ELDER JOB#: [id number] CC:
--- NOTE | 2019-08-06 17:45 | NUR ---
NURSE NOTES: Patient is for discharge today, discharge orders was given to ambulance, no belongings endorse, patient's daughter took patient's upper dentures. Patient is alert and oriented x 2. Patient has no complaint of pain, shortness of breath at the moment. MD was notified, and next of keen was notified.
--- NOTE | 2019-08-08 09:20 | Discharge Summary ---
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 I have been assigned to complete a discharge summary on this account, I was not involved with the patient's management.--AMY Hassan Jacqueline Robles NP Aug 08, 2019 09:20
== END 2019-08-06 17:45 | DRG 100 ==
LOC: EDBD 15:34 → EMR 17:25 → 2E 17:35 → EDBEDREQ 08-05 02:07
DX: R56.9 Unspecified convulsions (principal); G93.41 Metabolic encephalopathy; T36.8X5A Adverse effect of other systemic antibiotics, initial encounter; I25.10 Atherosclerotic heart disease of native coronary artery without angina pectoris; Z86.73 Personal history of transient ischemic attack (TIA), and cerebral infarction without residual deficits; I25.2 Old myocardial infarction; I10 Essential (primary) hypertension; K44.9 Diaphragmatic hernia without obstruction or gangrene; Z92.3 Personal history of irradiation; I36.1 Nonrheumatic tricuspid (valve) insufficiency; F41.9 Anxiety disorder, unspecified; F03.90 Unspecified dementia, unspecified severity, without behavioral disturbance, psychotic disturbance, mood disturbance, and anxiety
CPT/HCPCS: 36415; 70450; 71045; 80053; 80307; 81003; 82550; 82553; 83605; 83735; 83880; 84100; 84484; 85025; 85610; 85730; 86710; 87040; 87081; 87086; 93005; 95819; 96374; 99285; J7030